=== PATIENT | female | born 1985 | race Caucasian/White ===

== ENCOUNTER 2016-06-09 20:51 | Emergency (ER) | payer SELFPAY ==
[~2016-06-09 20:51] MED LIST: CETI10CA PO; CLOZ200T PO; DIVA125T14 PO; IBUP-1542 PO; IBUP400T22 PO; NPH10OT RIGHT EAR; ORPH100T PO; PEN500 PO; RTPRO5 IH
== END 2016-06-09 22:00 | disposition left against medical advice (07) ==
LOC: E/R 20:51
DX: Z53.21 Procedure and treatment not carried out due to patient leaving prior to being seen by health care provider (principal)

== ENCOUNTER 2016-08-18 15:41 | Emergency (ER) | payer OTHER ==
[~2016-08-18] VITALS: Wt 111.5 kg
[2016-08-18] MEDS ORDERED: FLUC150T17 PO (17:59)
[2016-08-18] MEDS ORDERED: CLOT30CR24 TOP (17:59)
[2016-08-18] MEDS ORDERED: ALBU2.5V3 NEB (18:00)
--- NOTE | 2016-08-18 18:12 | ERD ---
ER Documentation Chief Complaint Date/Time DATE: 08/18/16 TIME: 18:09 Chief Complaint RIGHT UNDERARM RASH AND SOB THAT BEGAN TODAY HPI This is a 30-year-old female presents to the ER with an itchy red rash under her right underarm that started 2 days ago. Patient is disabled and her father is with her helping me with history. Patient has not had any fevers or chills. She has not tried anything for the rash. Rash has not spread anywhere. Per father patient needs refill on nebulized albuterol. Per patient she is not feeling short of breath and she has not had any cough or cold symptoms lately. She denies any chest pain. ROS 12 point review of systems was done, all negative except per HPI. Medications Home Meds Active Scripts Albuterol Sulfate* (Albuterol Sulfate* Neb) 0.083%-3 Ml Neb, 2.5 MG NEB Q4 Y for SHORTNESS OF BREATH, #30 EA Prov:JANA SEBASTIAN 08/18/16 Fluconazole* (Diflucan*) 150 Mg Tablet, 150 MG PO ONCE, #1 TAB Prov:JANA SEBASTIAN 08/18/16 Clotrimazole* (Clotrimazole* AF) 1% - 30 Gm Cream.gm., 1 APPLIC TOP BID for 7 Days, TUB Prov:JANA SEBASTIAN 08/18/16 Cetirizine Hcl* (Zyrtec*) 10 Mg Capsule, 10 MG PO DAILY, #30 TAB.CHEW Prov:CARLOS ROMAN NP 04/12/16 Ibuprofen* (Motrin*) 400 Mg Tab, 400 MG PO Q6H Y for PAIN AND OR ELEVATED TEMP, #30 TAB Prov:CARLOS RMOAN NP 04/12/16 Penicillin V Potassium* (Penicillin V K*) 500 Mg Tab, 500 MG PO QID for 10 Days , TAB Prov:CARLOS ROMAN NP 04/12/16 Ibuprofen* (Motrin*) 400 Mg Tab, 400 MG PO Q6H Y for PAIN AND OR ELEVATED TEMP, #30 TAB Prov:CARLOS ROMAN NP 02/21/16 Neomycin/Polymyxin/Hydrocort* (Cortisporin* Otic) 10 Ml Susp, 4 DROP RIGHT EAR QID for 7 Days, EA Prov:CARLOS ROMAN [facility] 02/21/16 Penicillin V Potassium* (Penicillin V K*) 500 Mg Tab, 500 MG PO BID for 7 Days, TAB Prov:JANA SEBASTIAN 12/08/15 Ibuprofen* (Motrin*) 600 Mg Tab, 600 MG PO Q6, #30 TAB Prov:JANA SEBASTIAN 12/08/15 Orphenadrine Citrate (Norflex) 100 Mg Tablet.sa, 100 MG PO BID for 3 Days, TAB.SA Prov:JANA SEBASTIAN 11/10/15 Ibuprofen* (Motrin*) 600 Mg Tab, 600 MG PO Q6, #30 TAB Prov:JANA SEBASTIAN 11/10/15 Reported Medications Divalproex Sodium* (Depakote*) 125 Mg Tablet.dr, 50 MG PO blaire, TAB 12/17/13 Clozapine (Clozapine) 200 Mg Tablet, 100 MG PO BID, TAB 12/17/13 Albuterol Sulfate* (Proventil* Neb) 0.5 Ml Nebu, 0.5 ML IH Q4 Y for WHEEZING AND SOB 08/11/13 Allergies Allergies: Coded Allergies: No Known Allergies (Verified Allergy, Mild, 03/18/14) PMhx/Soc History of Surgery: Yes (APPENDECTOMY, septal repair) Anesthesia Reaction: No Hx Neurological Disorder: No Hx Cardiac Disorders: No Hx Psychiatric Problems: Yes (SCHIZOPRENIA) Hx Miscellaneous Medical Probl: No Hx Alcohol Use: No Hx Substance Use: No Hx Tobacco Use: No Smoking Status: Never smoker Physical Exam Vitals Vital Signs Date Time Temp Pulse Resp B/P Pulse Ox O2 Delivery O2 Flow Rate FiO2 08/18/16 15:57 98.3 107 18 133/82 96 Physical Exam GENERAL: The patient is well developed and appropriate for usual state of health , in no apparent distress. HEENT: Atraumatic. CHEST: Clear to auscultation bilaterally. There are no rales, wheezes or rhonchi. HEART: Regular rate and rhythm. No murmurs, clicks, rubs or gallops. NEURO: Alert and oriented. SKIN: Fever and rash under right underarm. Procedures/MDM This is a 30-year-old female presents to the ER with a rash under her arm for the last 2 days. This does appear to be a candidal infection. Patient will be sent home with clotrimazole. Father was instructed to try clotrimazole for a week and if this doesn't work she may give patient Diflucan. Patient was also given a refill for her nebulized albuterol. At this time there is no evidence of wheezing, shortness of breath. Patient is not hypoxic or in any respiratory distress. I shared my medical decision making with the father he understands and agrees with plan. Departure Diagnosis: Primary Impression: Monserrat infection Condition: Stable Patient Instructions: Fungal Infection, Skin [General] Additional Instructions: Call your primary care doctor TOMORROW for an appointment during the next 1-2 days.See the doctor sooner or return here if your condition worsens before your appointment time. JANA SEBASTIAN Aug 18, 2016 18:12
== END 2016-08-18 18:27 | disposition home or self-care (01) ==
LOC: FTE 15:41
DX: B37.41 Candidal cystitis and urethritis (principal)
CPT/HCPCS: 99283

== ENCOUNTER 2016-08-20 22:56 | Emergency (ER) | payer OTHER ==
[~2016-08-20] VITALS: Ht 162.6 cm; Wt 109.5 kg
[~2016-08-20 22:56] MED LIST changes: +ALBU2.5V3 NEB; +CLOT30CR24 TOP; +FLUC150T17 PO
[2016-08-20 23:05] VITALS: Ht 162.6 cm; Wt 109.5 kg
--- NOTE | 2016-08-21 | RADRPT ---
PROCEDURE: CT brain without contrast CLINICAL INDICATION: Headaches TECHNIQUE: A CT of the brain was performed utilizing axial sections from the skull base through th e vertex without contrast. Sagittal and coronal images were also reformatted. The exam CTDIvol = 41. 12 mGy and DLP = 630.20 mGy-cm. COMPARISON: None available FINDINGS: No acute intracranial hemorrhage is identified. There is no mass effect or midline shift. No extra -axial fluid collection is seen. The ventricles and sulci are within normal limits for size and con figuration. The density of the brain is within normal limits. Kirkland-white differentiation is preser sissy. The osseous structures are unremarkable. The mastoid air cells and visualized paranasal sinuses are clear. RPTAT:HJJR IMPRESSION: Unremarkable noncontrast CT of the brain. Physician Timbo Date Time Electronically viewed and signed by Physician Timbo on 08/20/2016 23:59 /
[2016-08-21] MEDS ORDERED: NAPR-688 PO (00:07)
--- NOTE | 2016-08-21 00:16 | ERD ---
ER Documentation Chief Complaint Date/Time DATE: 08/21/16 TIME: 00:13 Chief Complaint headache x 3 days HPI This is a 30-year-old female presents to the ER with a headache that is located all over her head over the last 3 days. Patient is mentally retarded and and is brought in by her father who is very concerned regarding headache. Patient denies any photophobia she denies any nausea or vomiting. She denies any head pain. Patient states that she ran into a wall 2 days ago and that this made her headache worse. Does not have any fevers or chills. Headache is described as throbbing in quality, it is made better with ibuprofen however always returns. ROS 12 point review of systems was done, all negative except per HPI. Medications Home Meds Active Scripts Naproxen* (Naproxen*) 500 Mg Tablet, 500 MG PO BID Y for HEADACHE for 7 Days, TAB Prov:JANA SEBASTIAN 08/21/16 Albuterol Sulfate* (Albuterol Sulfate* Neb) 0.083%-3 Ml Neb, 2.5 MG NEB Q4 Y for SHORTNESS OF BREATH, #30 EA Prov:JANA SEBASTIAN 08/18/16 Fluconazole* (Diflucan*) 150 Mg Tablet, 150 MG PO ONCE, #1 TAB Prov:JANA SEBASTIAN 08/18/16 Clotrimazole* (Clotrimazole* AF) 1% - 30 Gm Cream.gm., 1 APPLIC TOP BID for 7 Days, TUB Prov:JANA SEBASTIAN 08/18/16 Cetirizine Hcl* (Zyrtec*) 10 Mg Capsule, 10 MG PO DAILY, #30 TAB.CHEW Prov:CARLOS ROMAN NP 04/12/16 Ibuprofen* (Motrin*) 400 Mg Tab, 400 MG PO Q6H Y for PAIN AND OR ELEVATED TEMP, #30 TAB Prov:CARLOS ROMAN NP 04/12/16 Penicillin V Potassium* (Penicillin V K*) 500 Mg Tab, 500 MG PO QID for 10 Days , TAB Prov:CARLOS ROMAN NP 04/12/16 Ibuprofen* (Motrin*) 400 Mg Tab, 400 MG PO Q6H Y for PAIN AND OR ELEVATED TEMP, #30 TAB Prov:CARLOS ROMAN RANDALL MilySunita BROKER ASSISTANT 02/21/16 Neomycin/Polymyxin/Hydrocort* (Cortisporin* Otic) 10 Ml Susp, 4 DROP RIGHT EAR QID for 7 Days, EA Prov:CARLOS ROMANSunita BROKER ASSISTANT 02/21/16 Penicillin V Potassium* (Penicillin V K*) 500 Mg Tab, 500 MG PO BID for 7 Days, TAB Prov:JANA SEBASTIAN 12/08/15 Ibuprofen* (Motrin*) 600 Mg Tab, 600 MG PO Q6, #30 TAB Prov:JANA SEBASTIAN 12/08/15 Orphenadrine Citrate (Norflex) 100 Mg Tablet.sa, 100 MG PO BID for 3 Days, TAB.SA Prov:JANA SEBASTIAN 11/10/15 Ibuprofen* (Motrin*) 600 Mg Tab, 600 MG PO Q6, #30 TAB Prov:JANA SEBASTIAN 11/10/15 Reported Medications Divalproex Sodium* (Depakote*) 125 Mg Tablet.dr, 50 MG PO blaire, TAB 12/17/13 Clozapine (Clozapine) 200 Mg Tablet, 100 MG PO BID, TAB 12/17/13 Albuterol Sulfate* (Proventil* Neb) 0.5 Ml Nebu, 0.5 ML IH Q4 Y for WHEEZING AND SOB 08/11/13 Allergies Allergies: Coded Allergies: No Known Allergies (Verified Allergy, Mild, 03/18/14) PMhx/Soc History of Surgery: Yes (APPENDECTOMY, septal repair) Anesthesia Reaction: No Hx Neurological Disorder: No Hx Cardiac Disorders: No Hx Psychiatric Problems: Yes (SCHIZOPRENIA) Hx Miscellaneous Medical Probl: No Hx Alcohol Use: No Hx Substance Use: No Hx Tobacco Use: No Smoking Status: Never smoker Physical Exam Vitals Vital Signs Date Time Temp Pulse Resp B/P Pulse Ox O2 Delivery O2 Flow Rate FiO2 08/20/16 23:05 98.3 110 20 154/80 98 Physical Exam GENERAL: The patient is well developed and appropriate for usual state of health , in no apparent distress. HEENT: Atraumatic. Conjunctivae are pink. Pupils equal, round, and reactive to light. Extraocular muscles are grossly intact. Bilateral tympanic membranes are clear with no evidence of erythema, bulging or perforation. No sinus tenderness. NECK: C-spine is soft and supple. There is no cervical lymphadenopathy. CHEST: Clear to auscultation bilaterally. There are no rales, wheezes or rhonchi. HEART: Regular rate and rhythm. No murmurs, clicks, rubs or gallops. EXTREMITIES: Equal pulses bilaterally. There is no peripheral clubbing, cyanosis or edema. No focal swelling or erythema. Full range of motion. Grossly neurovascularly intact. NEURO: Alert and oriented. Cranial nerves II through XII are intact. Motor strength in all 4 extremities with 5/5 strength. Sensation grossly intact. Normal speech and gait. Negative Rhomberg. +2 DTRs. SKIN: There is no apparent rash or petechia. The skin is warm and dry. Procedures/MDM Differential Diagnosis includes but is not limited to; tension headache, migraine headache, cluster headache, sinus headache, nonspecific febrile headache, trigeminal neurologia, subdural hematoma, subarachnoid bleeding, meningitis, encephalitis. Patient is neurologically intact with no focal neurological deficits. This is a 30-year-old female presents to the ER with a headache, this may be a migraine headache. At this time I doubt intracranial pathology. CT imaging was negative. Patient will be sent home with naproxen. She is to follow-up with her primary care doctor within 1-2 days or return to ER sooner if symptoms worsen. My medical decision making was shared with the following he understands and agrees with plan. Departure Diagnosis: Primary Impression: Headache Condition: Stable Patient Instructions: Self-Care for Headaches Additional Instructions: Call your primary care doctor TOMORROW for an appointment during the next 1-2 days.See the doctor sooner or return here if your condition worsens before your appointment time. JANA SEBASTIAN Aug 21, 2016 00:15
== END 2016-08-21 00:29 | disposition home or self-care (01) ==
LOC: FTE 22:56
DX: R51 Headache (principal)
CPT/HCPCS: 70450; Z7502

== ENCOUNTER 2016-10-20 22:41 | Emergency (ER) | payer OTHER ==
[~2016-10-20] VITALS: Ht 167.6 cm; Wt 112.5 kg
[~2016-10-20 22:41] MED LIST changes: +NAPR-688 PO
[2016-10-20 22:49] VITALS: Ht 167.6 cm; Wt 112.5 kg
[2016-10-20] MEDS ORDERED: IPRATROPIUM (NEB) 0.5 MG/2.5 ML AMP NEB STA (23:50)
[2016-10-20] MEDS ORDERED: ALBUTEROL 0.083% (NEB) 2.5 MG/3 ML AMP NEB STA (23:50)
[2016-10-20] MEDS ORDERED: predniSONE 20 MG TAB PO STA (23:50)
--- NOTE | 2016-10-21 00:17 | RADRPT ---
PROCEDURE: Chest. CLINICAL INDICATION: Cough. TECHNIQUE: Single frontal view of the chest was obtained. COMPARISON: None. FINDINGS: The cardiac silhouette is within normal limits. The aortic arch is unremarkable. There is no focal consolidation, vascular congestion or pleural effusion. There is no pneumothorax. IMPRESSION: No evidence for active cardiopulmonary disease. .Erasmo Santacruz MD, Date Time Electronically viewed and signed by .Erasmo Santacruz MD, on 10/21/2016 00:17 .T/
--- NOTE | 2016-10-21 01:01 | ERD ---
ER Documentation Chief Complaint Date/Time DATE: 10/20/16 Chief Complaint Sore throat, Cough, Asthma exacerbation HPI The patient is a 30-year-old female with a history of asthma and schizophrenia who presents to the Emergency Department with complaint of recent rhinorrhea, sore throat and mild cough, exacerbating her underlying asthma. The patient reports that her symptoms began approximately 2 days ago, with onset of an aching, sore pain to her throat, mild dry, nonproductive cough, and clear rhinorrhea. Since onset of these symptoms, she notes that she has been experiencing increased wheezing, particularly at night, necessitating the use of her nebulizer machine. However, she finished her last Albuterol vial last night, and therefore did not have any available for use today. She admits to mild wheezing at this time, but otherwise denies shortness of breath, productive cough, stridor, chest pain, palpitations, lower extremity swelling, fevers, sweats, chills, neck pain, neck stiffness or new rashes. Denies any contacts with similar symptoms. No other complaints at this time. ROS All systems reviewed and are negative except as per history of present illness. Medications Home Meds Active Scripts Prednisone* (Prednisone*) 20 Mg Tab, 40 MG PO DAILY for 4 Days, TAB Prov:CHAS FATIMA PA-C 10/21/16 Albuterol Sulfate* (Albuterol Sulfate* Neb) 0.083%-3 Ml Neb, 2.5 MG NEB Q4H, # 30 VIAL Prov:CHAS FATIMA PA-C 10/21/16 Naproxen* (Naproxen*) 500 Mg Tablet, 500 MG PO BID Y for HEADACHE for 7 Days, TAB Prov:JANA SEBASTIAN 08/21/16 Albuterol Sulfate* (Albuterol Sulfate* Neb) 0.083%-3 Ml Neb, 2.5 MG NEB Q4 Y for SHORTNESS OF BREATH, #30 EA Prov:JANA SEBASTIAN 08/18/16 Fluconazole* (Diflucan*) 150 Mg Tablet, 150 MG PO ONCE, #1 TAB Prov:JANA SEBASTIAN 08/18/16 Clotrimazole* (Clotrimazole* AF) 1% - 30 Gm Cream.gm., 1 APPLIC TOP BID for 7 Days, TUB Prov:JANA SEBASTIAN 08/18/16 Cetirizine Hcl* (Zyrtec*) 10 Mg Capsule, 10 MG PO DAILY, #30 TAB.CHEW Prov:CARLOS ROMAN [employer] 04/12/16 Ibuprofen* (Motrin*) 400 Mg Tab, 400 MG PO Q6H Y for PAIN AND OR ELEVATED TEMP, #30 TAB Prov:CARLOS ROMAN [employer] 04/12/16 Penicillin V Potassium* (Penicillin V K*) 500 Mg Tab, 500 MG PO QID for 10 Days , TAB Prov:CARLOS ROMAN [employer] 04/12/16 Ibuprofen* (Motrin*) 400 Mg Tab, 400 MG PO Q6H Y for PAIN AND OR ELEVATED TEMP, #30 TAB Prov:CARLOS ROMAN [employer] 02/21/16 Neomycin/Polymyxin/Hydrocort* (Cortisporin* Otic) 10 Ml Susp, 4 DROP RIGHT EAR QID for 7 Days, EA Prov:CARLOS ROMAN [employer] 02/21/16 Penicillin V Potassium* (Penicillin V K*) 500 Mg Tab, 500 MG PO BID for 7 Days, TAB Prov:AMBER SEBASTIANRUTH Lynn 12/08/15 Ibuprofen* (Motrin*) 600 Mg Tab, 600 MG PO Q6, #30 TAB Prov:JANA SEBASTIAN 12/08/15 Orphenadrine Citrate (Norflex) 100 Mg Tablet.sa, 100 MG PO BID for 3 Days, TAB.SA Prov:AMBER SEBASTIANRUTH Lynn 11/10/15 Ibuprofen* (Motrin*) 600 Mg Tab, 600 MG PO Q6, #30 TAB Prov:JANA SEBASTIAN Leah 11/10/15 Reported Medications Divalproex Sodium* (Depakote*) 125 Mg Tablet.dr, 50 MG PO blaire, TAB 12/17/13 Clozapine (Clozapine) 200 Mg Tablet, 100 MG PO BID, TAB 12/17/13 Albuterol Sulfate* (Proventil* Neb) 0.5 Ml Nebu, 0.5 ML IH Q4 Y for WHEEZING AND SOB 08/11/13 Allergies Allergies: Coded Allergies: No Known Allergies (Verified Allergy, Mild, 03/18/14) PMhx/Soc History of Surgery: Yes (APPENDECTOMY, septal repair) Anesthesia Reaction: No Hx Neurological Disorder: No Hx Cardiac Disorders: No Hx Psychiatric Problems: Yes (SCHIZOPRENIA) Hx Miscellaneous Medical Probl: No Hx Alcohol Use: No Hx Substance Use: No Hx Tobacco Use: No Smoking Status: Never smoker Physical Exam Vitals Vital Signs Date Time Temp Pulse Resp B/P Pulse Ox O2 Delivery O2 Flow Rate FiO2 10/21/16 01:07 98.3 75 18 130/68 100 Room Air 10/20/16 23:55 89 24 98 21 10/20/16 22:49 98.2 95 20 123/64 97 Physical Exam GENERAL: Well-developed, well-nourished, in no acute distress. HEENT: Head is normocephalic, atraumatic. No scleral pallor or icterus. Pupils equal, round and reactive to light. Extraocular movements intact. Conjunctiva pink. Nares are patent bilaterally. Bilaterally tympanic membranes are clear with no evidence of erythema, effusion or dulling of the light reflex. Moist mucous membranes. No pharyngeal erythema or exudates. Uvula is midline. No trismus. No stridor. No excessive drooling. Phonation is normal. No submandibular swelling. NECK: Supple. No masses, no tenderness, no lymphadenopathy. Trachea midline. No nuchal rigidity. Full range of motion. RESPIRATORY: Lungs are clear to auscultation bilaterally. No rales or rhonchi. Faint expiratory wheezes bilaterally. Equal breath sounds. CARDIOVASCULAR: Regular rate and rhythm. S1 and S2 normal. GASTROINTESTINAL: Abdomen is soft, nontender, and nondistended. Normal bowel sounds. FLANK: No CVA tenderness, no mass or swelling. BACK: No midline tenderness. EXTREMITIES: No clubbing, cyanosis, or edema. Normal skin perfusion. Moving all extremities. Muscle tone is normal. No focal swelling or erythema. Distal pulses are palpable, 2+ bilaterally. Capillary refill is less than 2 seconds. NEUROLOGIC: The patient is alert, awake, and oriented x 3. INTEGUMENT: Skin is clean, dry and intact. No rashes, lesions or petechiae present. PSYCHIATRIC: Appropriate; Cooperative. Results 24 hrs Current Medications Medications (Trade) Dose Ordered Sig/Vicki Route PRN Reason Start Time Stop Time Status Last Admin Dose Admin Albuterol (Proventil 0.083% (Neb)) 5 mg ONCE STAT NEB 10/20/16 23:50 6/29/17 23:52 DC 10/21/16 00:04 Ipratropium [place] (Atrovent 0.02% (Neb)) 0.5 mg ONCE STAT NEB 10/20/16 23:50 10/20/16 23:52 DC 10/21/16 00:04 Prednisone (Prednisone) 60 mg ONCE STAT PO 10/20/16 23:50 10/20/16 23:52 DC 10/21/16 00:12 Procedures/MDM DIAGNOSTIC TESTS AND INTERPRETATION: PROCEDURE: Chest. CLINICAL INDICATION: Cough. TECHNIQUE: Single frontal view of the chest was obtained. COMPARISON: None. FINDINGS:The cardiac silhouette is within normal limits. The aortic arch is unremarkable. There is no focal consolidation, vascular congestion or pleural effusion. There is no pneumothorax. IMPRESSION:No evidence for active cardiopulmonary disease. .Erasmo Santacruz MD, MD Date Time Electronically viewed and signed by .Erasmo Santacruz MD, on 10/21/2016 00:17 MEDICAL DECISION MAKING: This is a 30-year-old female presenting to the emergency department with recent onset of cough, rhinorrhea, sore throat, and wheezing. Patient noted to have faint expiratory wheezing auscultated throughout bilateral lung appiah on physical examination, though with no rales, no rhonchi. She was placed in a room and observed. The patient was given an Albuterol and Atrovent breathing treatment in the ED by respiratory therapy. Prednisone 60 mg PO was also administered. After rest, a period of observation, medication and breathing treatment, the patient had resolution of her wheezing, and felt significantly better. Her lungs are now clear to auscultation bilaterally, with no rales, rhonchi or wheezing. No intercostal retractions, nasal flaring, accessory muscle use or signs of respiratory distress. Chest x- ray with no acute cardiopulmonary abnormalities. Upon review and interpretation of the patient's presentation and overall ER course, I believe the patient's symptoms to be consistent with acute upper respiratory infection, likely viral, and asthma exacerbation. Clinical presentation is not consistent with pneumonia , acute coronary syndrome, pulmonary embolism, acute respiratory distress syndrome, status asthmaticus, sinusitis, otitis media, otitis externa, pharyngitis, airway obstruction, anaphylaxis, pneumothorax, acute/surgical abdomen, sepsis, dehydration or meningitis. At this time, the patient is in stable condition, and no longer experiencing any wheezing or shortness of breath , and therefore can be discharged home with prescriptions for a short course of prednisone and Albuterol. She is advised to follow-up with her primary care provider for reevaluation and further management within 2-3 days, or return to the ER sooner for any new or worsening symptoms. I shared my medical decision making and plan with the patient and family at length and in great detail, and they verbally understand and agree with the plan for further observation and care as an outpatient. At the time of discharge, all questions were answered. Departure Diagnosis: Primary Impression: Asthma with acute exacerbation Asthma severity: mild intermittent Qualified Code: J45.21 - Mild intermittent asthma with acute exacerbation Additional Impression: Upper respiratory infection URI type: unspecified URI Qualified Code: J06.9 - Upper respiratory tract infection, unspecified type Condition: Stable Patient Instructions: Asthma, Acute (Adult), Pharyngitis, Viral, Preventing Common Respiratory Infections Additional Instructions: Call your primary care doctor TOMORROW for an appointment during the next 2-3 days.See the doctor sooner or return here if your condition worsens before your appointment time CHAS FATIMA PA-C Oct 21, 2016 01:01
[2016-10-21] MEDS ORDERED: PRED20TA PO (01:02)
[2016-10-21] MEDS ORDERED: ALBU2.5V3 NEB (01:02)
[2016-10-21 01:07] VITALS: BP 130/68; PULSE 75; RESP 18; TEMP 98.3
== END 2016-10-21 01:07 | disposition home or self-care (01) ==
LOC: FTE 22:41
DX: J45.21 Mild intermittent asthma with (acute) exacerbation (principal); J06.9 Acute upper respiratory infection, unspecified
CPT/HCPCS: 71010; 94664; J7512; Z7610

== ENCOUNTER 2016-10-31 22:14 | Emergency (ER) | payer OTHER ==
[~2016-10-31] VITALS: Ht 167.6 cm; Wt 109.5 kg
[~2016-10-31 22:14] MED LIST changes: +PRED20TA PO
[2016-10-31 22:24] VITALS: Ht 167.6 cm; Wt 109.5 kg
[2016-11-01] MEDS ORDERED: MUPI22OI2 TOP (00:29)
[2016-11-01] MEDS ORDERED: HC30CR25 TOP (00:29)
--- NOTE | 2016-11-01 17:17 | ERD ---
ER Documentation Chief Complaint Date/Time DATE: 11/01/16 TIME: 17:13 Chief Complaint bug bite on right legx 2 days. c/o itching to right leg HPI 31-year-old female presenting to the emergency department complaining of 2 lesions on her right leg for the past 2 days. Patient states that it's very itchy, she denies any pain radiating 0 out of 10. Patient denies any fevers, try any medications. ROS All systems reviewed and are negative except as per history of present illness. Medications Home Meds Active Scripts Mupirocin* (Bactroban*) 2% -22 Gram Oint...g., 1 APPLIC TOP BID for 7 Days, EA Prov:STEFANY JESSICA PA-C 11/01/16 Hydrocortisone* Topical (Hydrocortisone* Topical) 2.5%-28.3 Gm Cream..g., 1 APPLIC TOP BID for 7 Days, #1 TUB Prov:STEFANY JESSICA PA-C 11/01/16 Prednisone* (Prednisone*) 20 Mg Tab, 40 MG PO DAILY for 4 Days, TAB Prov:CHAS FATIMA PA-C 10/21/16 Albuterol Sulfate* (Albuterol Sulfate* Neb) 0.083%-3 Ml Neb, 2.5 MG NEB Q4H, # 30 VIAL Prov:CHAS FATIMA PA-C 10/21/16 Naproxen* (Naproxen*) 500 Mg Tablet, 500 MG PO BID Y for HEADACHE for 7 Days, TAB Prov:JANA SEBASTIAN 08/21/16 Albuterol Sulfate* (Albuterol Sulfate* Neb) 0.083%-3 Ml Neb, 2.5 MG NEB Q4 Y for SHORTNESS OF BREATH, #30 EA Prov:JANA SEBASTIAN 08/18/16 Fluconazole* (Diflucan*) 150 Mg Tablet, 150 MG PO ONCE, #1 TAB Prov:JANA SEBASTIAN 08/18/16 Clotrimazole* (Clotrimazole* AF) 1% - 30 Gm Cream.gm., 1 APPLIC TOP BID for 7 Days, TUB Prov:JANA SEBASTIAN 08/18/16 Cetirizine Hcl* (Zyrtec*) 10 Mg Capsule, 10 MG PO DAILY, #30 TAB.CHEW Prov:CARLOS ROMAN. FIELD IDENTIFICATION SPECIALIST 04/12/16 Ibuprofen* (Motrin*) 400 Mg Tab, 400 MG PO Q6H Y for PAIN AND OR ELEVATED TEMP, #30 TAB Prov:CARLOS ROMAN. FIELD IDENTIFICATION SPECIALIST 04/12/16 Penicillin V Potassium* (Penicillin V K*) 500 Mg Tab, 500 MG PO QID for 10 Days , TAB Prov:CARLOS ROMAN Mily. FIELD IDENTIFICATION SPECIALIST 04/12/16 Ibuprofen* (Motrin*) 400 Mg Tab, 400 MG PO Q6H Y for PAIN AND OR ELEVATED TEMP, #30 TAB Prov:CARLOS ROMAN Mily. FIELD IDENTIFICATION SPECIALIST 02/21/16 Neomycin/Polymyxin/Hydrocort* (Cortisporin* Otic) 10 Ml Susp, 4 DROP RIGHT EAR QID for 7 Days, EA Prov:CARLOS ROMAN Mily. FIELD IDENTIFICATION SPECIALIST 02/21/16 Penicillin V Potassium* (Penicillin V K*) 500 Mg Tab, 500 MG PO BID for 7 Days, TAB Prov:JANA SEBASTIAN C 12/08/15 Ibuprofen* (Motrin*) 600 Mg Tab, 600 MG PO Q6, #30 TAB Prov:JANA SEBASTIAN C 12/08/15 Orphenadrine Citrate (Norflex) 100 Mg Tablet.sa, 100 MG PO BID for 3 Days, TAB.SA Prov:JANA SEBASTIAN C 11/10/15 Ibuprofen* (Motrin*) 600 Mg Tab, 600 MG PO Q6, #30 TAB Prov:JANA SEBASTIAN 11/10/15 Reported Medications Divalproex Sodium* (Depakote*) 125 Mg Tablet.dr, 50 MG PO blaire, TAB 12/17/13 Clozapine (Clozapine) 200 Mg Tablet, 100 MG PO BID, TAB 12/17/13 Albuterol Sulfate* (Proventil* Neb) 0.5 Ml Nebu, 0.5 ML IH Q4 Y for WHEEZING AND SOB 08/11/13 Allergies Allergies: Coded Allergies: No Known Allergies (Verified Allergy, Mild, 03/18/14) PMhx/Soc History of Surgery: Yes (APPENDECTOMY, septal repair) Anesthesia Reaction: No Hx Neurological Disorder: No Hx Cardiac Disorders: No Hx Psychiatric Problems: Yes (SCHIZOPRENIA) Hx Miscellaneous Medical Probl: No Hx Alcohol Use: No Hx Substance Use: No Hx Tobacco Use: No Physical Exam Vitals Vital Signs Date Time Temp Pulse Resp B/P Pulse Ox O2 Delivery O2 Flow Rate FiO2 10/31/16 22:24 97.9 108 18 140/73 99 Physical Exam General: WD/WN, in no apparent distress, non-toxic appearing HENT: NC/AT Eyes: Conjunctiva normal Neck: Supple Pulm: Clear to auscultation, normal labored breathing; no wheezing/rales/ rhonchi heard CV: Good capillary refill GI: Non-distended, no guarding Back: No masses Ext: No clubbing, cyanosis, or edema Neuro: Moves on all fours Skin: 2 erythematous papules on her right leg. Psych: Normal mood Procedures/MDM This is a 31-year-old female presenting to the emergency department with a chief complaint of lesions on her right leg that are itchy, most consistent with insect bites. There is no evidence of cellulitis. No evidence of anaphylaxis, scabies. Patient is stable to be discharged home with prescription for hydrocortisone cream and spray about ointment. I discussed with her to return the ER for any worsening signs or symptoms, patient agrees and understands the plan Departure Diagnosis: Primary Impression: Insect bite Condition: Stable Patient Instructions: Allergic Reaction, Insect (Local) Additional Instructions: FOLLOW UP WITH YOUR PRIMARY CARE PHYSICIAN TOMORROW.Return to this facility if you are not improving as expected. Return to this facility if you are not improving as expected. STEFANY JESSICA PA-C Nov 01, 2016 17:17
== END 2016-11-01 01:06 | disposition home or self-care (01) ==
LOC: FTE 22:14
DX: S80.861A Insect bite (nonvenomous), right lower leg, initial encounter (principal); W57.XXXA Bitten or stung by nonvenomous insect and other nonvenomous arthropods, initial encounter; Y92.9 Unspecified place or not applicable
CPT/HCPCS: 99283

== ENCOUNTER 2016-12-05 01:14 | Emergency (ER) | payer OTHER ==
[~2016-12-05] VITALS: Ht 170.2 cm; Wt 114.0 kg
[~2016-12-05 01:14] MED LIST changes: +HC30CR25 TOP; +MUPI22OI2 TOP
[2016-12-05 01:18] VITALS: Ht 170.2 cm; Wt 114.0 kg
[2016-12-05 02:17] LABS: URINE BLOOD (Dip) POC 2+ (NEGATIVE)
--- NOTE | 2016-12-05 02:28 | ERA ---
ER Documentation Chief Complaint Date/Time DATE: 12/05/16 TIME: 02:24 Chief Complaint burning pain upon urination HPI This is a 31-year-old female presented with a chief complaint of urinary tract infection. Patient describes dysuria, urgency, and suprapubic pain. Patient states that she has had UTIs in the past and this feels just the same. Denies fever, chills, dysuria, hematuria, back pain, abdominal pain, pelvic pain, discharge, foul odor, nausea, vomiting, diarrhea, constipation, headache, or cough. ROS All systems reviewed and are negative except as per history of present illness. Medications Home Meds Active Scripts Phenazopyridine Hcl* (Pyridium*) 100 Mg Tab, 100 MG PO TID Y for URINARY PAIN, # 8 TAB Prov:MARGARITA STYLES PA-C 12/05/16 Nitrofurantoin Monohyd Macrocr* (Macrobid*) 100 Mg Capsr, 100 MG PO HS for 7 Days, CAP Prov:MARGARITA STYLES PA-C 12/05/16 Mupirocin* (Bactroban*) 2% -22 Gram Oint...g., 1 APPLIC TOP BID for 7 Days, EA Prov:STEFANY JESSICA PA-C 11/01/16 Hydrocortisone* Topical (Hydrocortisone* Topical) 2.5%-28.3 Gm Cream..g., 1 APPLIC TOP BID for 7 Days, #1 TUB Prov:STEFANY JESSICA PA-C 11/01/16 Prednisone* (Prednisone*) 20 Mg Tab, 40 MG PO DAILY for 4 Days, TAB Prov:CHAS FATIMA PA-C 10/21/16 Albuterol Sulfate* (Albuterol Sulfate* Neb) 0.083%-3 Ml Neb, 2.5 MG NEB Q4H, # 30 VIAL Prov:CHAS FATIMA PA-C 10/21/16 Naproxen* (Naproxen*) 500 Mg Tablet, 500 MG PO BID Y for HEADACHE for 7 Days, TAB Prov:JANA SEBASTIAN 08/21/16 Albuterol Sulfate* (Albuterol Sulfate* Neb) 0.083%-3 Ml Neb, 2.5 MG NEB Q4 Y for SHORTNESS OF BREATH, #30 EA Prov:JANA SEBASTIAN 08/18/16 Fluconazole* (Diflucan*) 150 Mg Tablet, 150 MG PO ONCE, #1 TAB Prov:JANA SEBASTIAN 08/18/16 Clotrimazole* (Clotrimazole* AF) 1% - 30 Gm Cream.gm., 1 APPLIC TOP BID for 7 Days, TUB Prov:JANA SEBASTIAN 08/18/16 Cetirizine Hcl* (Zyrtec*) 10 Mg Capsule, 10 MG PO DAILY, #30 TAB.CHEW Prov:CARLOS ROMAN CUSTOMS AND IMMIGRATION OFFICER 04/12/16 Ibuprofen* (Motrin*) 400 Mg Tab, 400 MG PO Q6H Y for PAIN AND OR ELEVATED TEMP, #30 TAB Prov:CARLOS ROMAN CUSTOMS AND IMMIGRATION OFFICER 04/12/16 Penicillin V Potassium* (Penicillin V K*) 500 Mg Tab, 500 MG PO QID for 10 Days , TAB Prov:CARLOS ROMAN CUSTOMS AND IMMIGRATION OFFICER 04/12/16 Ibuprofen* (Motrin*) 400 Mg Tab, 400 MG PO Q6H Y for PAIN AND OR ELEVATED TEMP, #30 TAB Prov:CARLOS ROMAN C[employer]S AND IMMIGRATION OFFICER 16 Neomycin/Polymyxin/Hydrocort* (Cortisporin* Otic) 10 Ml Susp, 4 DROP RIGHT EAR QID for 7 Days, EA Prov:CARLOS ROMAN CUSTOMS AND IMMIGRATION OFFICER 02/21/16 Penicillin V Potassium* (Penicillin V K*) 500 Mg Tab, 500 MG PO BID for 7 Days, TAB Prov:JANA SEBASTIAN Leah 12/08/15 Ibuprofen* (Motrin*) 600 Mg Tab, 600 MG PO Q6, #30 TAB Prov:JANA SEBASTIAN Leah 12/08/15 Orphenadrine Citrate (Norflex) 100 Mg Tablet.sa, 100 MG PO BID for 3 Days, TAB.SA Prov:JANA SEBASTIAN Leah 11/10/15 Ibuprofen* (Motrin*) 600 Mg Tab, 600 MG PO Q6, #30 TAB Prov:JANA SEBASTIAN Leah 11/10/15 Reported Medications Divalproex Sodium* (Depakote*) 125 Mg Tablet.dr, 50 MG PO blaire, TAB 12/17/13 Clozapine (Clozapine) 200 Mg Tablet, 100 MG PO BID, TAB 8/26/14 Albuterol Sulfate* (Proventil* Neb) 0.5 Ml Nebu, 0.5 ML IH Q4 Y for WHEEZING AND SOB 08/11/13 Allergies Allergies: Coded Allergies: No Known Allergies (Verified Allergy, Mild, 03/18/14) PMhx/Soc History of Surgery: Yes (APPENDECTOMY, septal repair) Anesthesia Reaction: No Hx Neurological Disorder: No Hx Cardiac Disorders: No Hx Psychiatric Problems: Yes (SCHIZOPRENIA) Hx Miscellaneous Medical Probl: No Hx Alcohol Use: No Hx Substance Use: No Hx Tobacco Use: No Smoking Status: Never smoker Physical Exam Vitals Vital Signs Date Time Temp Pulse Resp B/P Pulse Ox O2 Delivery O2 Flow Rate FiO2 12/05/16 01:18 97.9 93 18 132/77 97 Physical Exam Const: Healthy-appearing. Obese. No acute distress. Abd: Mild suprapubic tenderness. Soft, non tender, non distended. No guarding, masses. Normal bowel sounds. No McBurney's point tenderness. Back: No midline, flank or CVA tenderness Head: Normocephalic, Atraumatic. Eyes: Non-injected; No scleral erythema, discharge or foreign body. Ears: Normal External Ears, EACs clear, TM normal bilaterally without erythema. Nose: Normal external nose; no discharge, septal deviation, or sinus tenderness. Neck: No cervical lymphadenopathy, masses or goiter palpated. Trachea midline. Supple ~ No meningismus. Pulm: No dyspnea, stridor, tripoding or drooling. Good air movement. Clear to auscultation bilaterally. Cardio: Regular rate and rhythm; No murmurs, gallops or rubs auscultated. No JVD grossly observed. Radial and posterior tibial pulses 2+ bilaterally. Capillary refill less than 2 seconds. MS: Normal motor strength, normal tone. Skin: No petechiae or rashes. No ulcer, induration, jaundice. Good turgor. . Ext: No cyanosis, edema or palpable cord. Normal movement of all extremities grossly observed. Neur: Awake, alert and oriented x3. Neurovascularly intact bilaterally. Psych: Normal Mood and Affect. Results 24 hrs Laboratory Tests Test 12/05/16 02:23 12/05/16 02:45 Bedside Urine pH (LAB) 6.5 Bedside Urine Protein (LAB) Negative Bedside Urine Glucose (UA) Negative Bedside Urine Ketones (LAB) Trace Bedside Urine Blood 2+ Bedside Urine Nitrite (LAB) Negative Bedside Urine Leukocyte Esterase (L Negative Urine Color YELLOW Urine Clarity CLEAR Urine pH 6.0 Urine Specific [place] 1.013 Urine Ketones TRACEmg/dL Urine Nitrite NEGATIVEmg/dL Urine Bilirubin NEGATIVEmg/dL Urine Urobilinogen NEGATIVEmg/dL Urine Leukocyte Esterase NEGATIVELeu/ul Urine Microscopic RBC 17/HPF Urine Microscopic WBC 1/HPF Urine Squamous Epithelial Cells FEW/HPF Urine Amorphous Crystals FEW/HPF Urine Bacteria FEW/HPF Urine Hemoglobin 3+mg/dL Urine Glucose NEGATIVEmg/dL Urine Total Protein NEGATIVEmg/dl Procedures/MDM Patient was evaluated and worked up for urinary tract infection as described in the history and physical exam. Workup included urine dip and urine . Urine was negative. Urine dip resulted in the following: Negative leukocytes and nitrates. Positive hematuria, white blood cells and crystals. Most consistent with possible stone. Most likely diagnosis is stone versus cystitis. Patient will be treated with nitrofurantoin 7 days.. At this time I do not suspect pyelonephritis, ovarian torsion, tubo-ovarian abscess, ectopic , mechanical obstruction, hernia, appendicitis, intestinal ischemia, PID, AAA, or diverticulitis. The patient is well appearing, and tolerates PO. I have spoke with the patient regarding their condition and future management. They have verbally responded that they understand their status and treatment plan. The patients vitals are stable, and their current condition is appropriate for discharge. The patient will be given discharge instructions with return precautions. Departure Diagnosis: Primary Impression: Cystitis Additional Impression: Nephrolithiasis Condition: Stable Additional Instructions: Follow up with your PCP within the next 1-3 days for a more thorough evaluation and a possible referral to a specialist. Return the the emergency department immediately if symptoms worsen or change. If you have any questions regarding medications, ask your pharmacist or us before you leave. If any adverse reactions occur while taking your medications, discontinue the treatment and return to the emergency department immediately. Take your medications as directed, and complete the entire course of treatment. MARGARITA STYLES PA-C Dec 05, 2016 02:28
[2016-12-05] MEDS ORDERED: NITR-58 PO (02:44)
[2016-12-05] MEDS ORDERED: PHEN-537 PO (02:44)
[2016-12-05 03:59] LABS: ADD UMIC YES; UR AMORPHOUS CRYSTAL FEW /HPF (NONE SEEN); UR ASCORBIC ACID NEGATIVE (NEGATIVE); UR BACTERIA FEW /HPF (NONE SEEN); UR BILIRUBIN (Dip) NEGATIVE (NEGATIVE); UR BLOOD (Dip) 3+ mg/dL (NEGATIVE); UR CLARITY CLEAR (CLEAR); UR COLOR YELLOW (YELLOW); UR GLUCOSE (Dip) NEGATIVE (NEGATIVE); UR KETONES (Dip) TRACE mg/dL (NEGATIVE); UR LEUKOCYTE ESTERASE (Dip) NEGATIVE Leu/ul (NEGATIVE); UR NITRITE (Dip) NEGATIVE (NEGATIVE); UR RBC 17 /HPF (0-5); UR SPECIFIC GRAVITY (Dip) 1.013 (1.003-1.030); UR SQUAMOUS EPITHELIAL CELL FEW /HPF (FEW); UR TOTAL PROTEIN (Dip) NEGATIVE (NEGATIVE); UR UROBILINOGEN (Dip) NEGATIVE (NEGATIVE)
== END 2016-12-05 02:48 | disposition home or self-care (01) ==
LOC: FTE 01:14
DX: N30.90 Cystitis, unspecified without hematuria (principal); N20.0 Calculus of kidney
CPT/HCPCS: 81001; Z7502; 81003; 99283

== ENCOUNTER 2017-01-06 23:20 | Emergency (ER) | payer OTHER ==
[~2017-01-06] VITALS: Ht 172.7 cm; Wt 114.5 kg
[~2017-01-06 23:20] MED LIST changes: +NITR-58 PO; +PHEN-537 PO
[2017-01-06 23:24] VITALS: Ht 172.7 cm; Wt 114.5 kg
[2017-01-06] MEDS ORDERED: ACET500C5 PO (23:59)
--- NOTE | 2017-01-07 00:06 | ERD ---
ER Documentation Chief Complaint Date/Time DATE: 01/07/17 TIME: 00:00 Chief Complaint PETERSON for a week and worsened today HPI Patient is a 31-year-old female with a past medical history of schizophrenia who presents to the emergency department for concerns of a left-sided headache which has been episodic for the last week. Patient states earlier today the pain was worse however at this current time she has no pain at all. Patient denies taking any medication for headache. Patient denies any fever, chills, neck pain, neck stiffness, nausea, vomiting, blurry vision, photophobia, phonophobia, loss of consciousness, chest pain, shortness of breath. Denies any head injury or fall injuries. Patient states her last menstrual period was 2 weeks ago. She has no homicidal or suicidal ideations at this time. Of note , patient's father is present with her and states that patient is compliant with her schizophrenia medications. ROS All systems reviewed and are negative except as per history of present illness. Medications Home Meds Active Scripts Acetaminophen* (Tylophen*) 500 Mg Capsule, 1 CAP PO Q6H Y for PAIN AND OR ELEVATED TEMP, #20 CAP Prov:FALLON OLO PA-C 01/06/17 Phenazopyridine Hcl* (Pyridium*) 100 Mg Tab, 100 MG PO TID Y for URINARY PAIN, # 8 TAB Prov:MARGARITA STYLES PA-C 12/05/16 Nitrofurantoin Monohyd Macrocr* (Macrobid*) 100 Mg Capsr, 100 MG PO HS for 7 Days, CAP Prov:MARGARITA STYLES PA-C 12/05/16 Mupirocin* (Bactroban*) 2% -22 Gram Oint...g., 1 APPLIC TOP BID for 7 Days, EA Prov:STEFANY JESSICA PA-C 11/01/16 Hydrocortisone* Topical (Hydrocortisone* Topical) 2.5%-28.3 Gm Cream..g., 1 APPLIC TOP BID for 7 Days, #1 TUB Prov:STEFANY JESSICA PA-C 11/01/16 Prednisone* (Prednisone*) 20 Mg Tab, 40 MG PO DAILY for 4 Days, TAB Prov:CHAS FATIMA PA-C 10/21/16 Albuterol Sulfate* (Albuterol Sulfate* Neb) 0.083%-3 Ml Neb, 2.5 MG NEB Q4H, # 30 VIAL Prov:CHAS FATIMA PA-C 10/21/16 Naproxen* (Naproxen*) 500 Mg Tablet, 500 MG PO BID Y for HEADACHE for 7 Days, TAB Prov:JANA SEBASTIAN 08/21/16 Albuterol Sulfate* (Albuterol Sulfate* Neb) 0.083%-3 Ml Neb, 2.5 MG NEB Q4 Y for SHORTNESS OF BREATH, #30 EA Prov:JANA SEBASTIAN 08/18/16 Fluconazole* (Diflucan*) 150 Mg Tablet, 150 MG PO ONCE, #1 TAB Prov:JANA SEBASTIAN 08/18/16 Clotrimazole* (Clotrimazole* AF) 1% - 30 Gm Cream.gm., 1 APPLIC TOP BID for 7 Days, TUB Prov:JANA SEBASTIAN 08/18/16 Cetirizine Hcl* (Zyrtec*) 10 Mg Capsule, 10 MG PO DAILY, #30 TAB.CHEW Prov:CARLOS ROMAN NP 04/12/16 Ibuprofen* (Motrin*) 400 Mg Tab, 400 MG PO Q6H Y for PAIN AND OR ELEVATED TEMP, #30 TAB Prov:CARLOS ROMAN NP 04/12/16 Penicillin V Potassium* (Penicillin V K*) 500 Mg Tab, 500 MG PO QID for 10 Days , TAB Prov:CARLOS ROMAN NP 04/12/16 Ibuprofen* (Motrin*) 400 Mg Tab, 400 MG PO Q6H Y for PAIN AND OR ELEVATED TEMP, #30 TAB Prov:CARLOS ROMAN WET SANDER 02/21/16 Neomycin/Polymyxin/Hydrocort* (Cortisporin* Otic) 10 Ml Susp, 4 DROP RIGHT EAR QID for 7 Days, EA Prov:CARLOS ROMAN WET SANDER 02/21/16 Penicillin V Potassium* (Penicillin V K*) 500 Mg Tab, 500 MG PO BID for 7 Days, TAB Prov:JANA SEBASTIAN 12/08/15 Ibuprofen* (Motrin*) 600 Mg Tab, 600 MG PO Q6, #30 TAB Prov:JANA SEBASTIAN 12/08/15 Orphenadrine Citrate (Norflex) 100 Mg Tablet.sa, 100 MG PO BID for 3 Days, TAB.SA Prov:JANA SEBASTIAN 11/10/15 Ibuprofen* (Motrin*) 600 Mg Tab, 600 MG PO Q6, #30 TAB Prov:JANA SEBASTIAN 11/10/15 Reported Medications Divalproex Sodium* (Depakote*) 125 Mg Tablet.dr, 50 MG PO blaire, TAB 12/17/13 Clozapine (Clozapine) 200 Mg Tablet, 100 MG PO BID, TAB 12/17/13 Albuterol Sulfate* (Proventil* Neb) 0.5 Ml Nebu, 0.5 ML IH Q4 Y for WHEEZING AND SOB 08/11/13 Allergies Allergies: Coded Allergies: No Known Allergies (Verified Allergy, Mild, 03/18/14) PMhx/Soc History of Surgery: Yes (APPENDECTOMY, septal repair) Anesthesia Reaction: No Hx Neurological Disorder: No Hx Cardiac Disorders: No Hx Psychiatric Problems: Yes (SCHIZOPRENIA) Hx Miscellaneous Medical Probl: No Hx Alcohol Use: No Hx Substance Use: No Hx Tobacco Use: No Physical Exam Vitals Vital Signs Date Time Temp Pulse Resp B/P Pulse Ox O2 Delivery O2 Flow Rate FiO2 01/06/17 23:24 98.8 98 16 145/91 100 Physical Exam GENERAL: Well-developed, well-nourished female. Appears in no acute distress. Speaking in full sentences. HEAD: Normocephalic, atraumatic. EYES: Pupils are equally reactive bilaterally. EOMs grossly intact. No conjunctival erythema. ENT: Moist mucous membranes. No uvula deviation. No kissing tonsils. NECK: Supple. No meningismus. Normal range of motion of the neck. No neck stiffness noted. No meningeal signs noted. LUNG: Clear to auscultation bilaterally. No rhonchi, wheezing, rales or coarse breath sounds. HEART: Regular rate and rhythm. No murmurs, rubs or gallops. BACK: No midline tenderness. EXTREMITIES: Equal pulses bilaterally. No peripheral clubbing, cyanosis or edema. No unilateral leg swelling. NEUROLOGIC: Alert and oriented x3, cooperative. Mood and affect appropriate to situation. Cranial nerves II through XII are grossly intact. Normal speech. Motor exam: 5/5 strength in upper and lower extremities. Sensory exam: Sensation intact to light touch on all four extremities. Cerebellar function exam:No dysmetria on [id number] test. Steady gait. No pronator drift. SKIN: Normal color. Warm and dry. No rashes or lesions. Procedures/MDM MEDICAL DECISION MAKING: This is a 31-year-old female presents to the emergency department with intermittent headaches for the last week. Patient states that she did have some left-sided head pain earlier today however her pain is completely resolved. Patient denies any fever, nausea, vomiting, neck pain, neck stiffness , visual changes or LOC. Vital signs were reviewed. Patient was not febrile. Patient was not hypoxic. Full neurological exam was normal. I reviewed the patient's medical history which shows the patient was seen here back in July of this year for similar concerns of a headache. Patient had a negative CT brain at that time. At this time, patient's presentation is most consistent with tension headache. Low suspicion for intracranial hemorrhage, meningitis, encephalitis, intracranial mass, glaucoma, preeclampsia, sinusitis, migraine headache, cluster headache. PRESCRIPTIONS: Tylenol DISCHARGE: At this time, patient is stable for discharge and outpatient management. I have encouraged the patient to hydrate well. I have instructed the patient to follow- up with his/her primary care physician in 1-2 days. If symptoms persist, patient may need to see a specialist for further examinations and testing. I have instructed the patient to promptly return to the ER at any time for any new or worsening symptoms including increased increased pain, fever, nausea, vomiting, numbness, neck stiffness, visual changes, weakness or LOC. The patient and/or family expressed understanding of and agreement with this plan. All questions were answered. Home care instructions were provided. Patient's blood pressure was elevated (>120/80) but appears stable without evidence of hypertensive emergency, hypertensive urgency or end-organ failure. I had discussion with the patient about the risks of hypertension. I have advised the patient to follow up with his/her primary care physician for outpatient monitoring and treatment for hypertension in 2-3 days. I have instructed the patient to return to the ER for any new or worsening symptoms including chest pain, shortness of breath, headache, blurred vision, confusion, nausea, vomiting or LOC. Disclaimer: Inadvertent spelling and grammatical errors are likely due to EHR/ dictation software use and do not reflect on the overall quality of patient care. Also, please note that the electronic time recorded on this note does not necessarily reflect the actual time of the patient encounter. Departure Diagnosis: Primary Impression: Headache Headache type: unspecified Headache chronicity pattern: unspecified pattern Intractability: not intractable Qualified Code: R51 - Nonintractable headache, unspecified chronicity pattern, unspecified headache type Condition: Stable Patient Instructions: Self-Care for Headaches Referrals: [facility] (PCP) Additional Instructions: Continue all schizophrenia medication as prescribed by your doctor. Call your primary care doctor TOMORROW for an appointment during the next 1-2 days.See the doctor sooner or return here if your condition worsens before your appointment time. FALLON LOO PA-C Jan 07, 2017 00:06
== END 2017-01-07 00:11 | disposition home or self-care (01) ==
LOC: FTE 23:20
DX: R51 Headache (principal)
CPT/HCPCS: 99283

== ENCOUNTER 2017-01-25 17:36 | Emergency (ER) | payer OTHER ==
[~2017-01-25] VITALS: Wt 110.0 kg
[~2017-01-25 17:36] MED LIST changes: +ACET500C5 PO; -PEN500 PO; +PENI500T PO
[2017-01-25 20:09] VITALS: BP 142/90; PULSE 96; RESP 16; TEMP 98.1
--- NOTE | 2017-01-25 20:39 | ERA ---
ER Documentation Chief Complaint Date/Time DATE: 01/25/17 TIME: 20:29 Chief Complaint perez, seen here prior to same HPI 31-year-old female with history of schizophrenia presents with the chief complaints of headache that has been chronic and intermittent for the past few months. Denies change in symptoms. Describes the pain as 8 out of 10 and predominately on the right side. Denies fever, worst headache of life, thunderclap headache, meningismus, temporal pain, eye pain, aura, change in vision, or new medications. Patient has been evaluated by other emergency departments per their history in the past week and discharge with only ibuprofen. Patient wishes to have more than ibuprofen. The nursing notes have been reviewed and are consistent with the obtained history. ROS All systems reviewed and are negative except as per history of present illness. Medications Home Meds Active Scripts Acetaminophen* (Tylophen*) 500 Mg Capsule, 1 CAP PO Q6H Y for PAIN AND OR ELEVATED TEMP, #20 CAP Prov:FALLON LOO PA-C 01/06/17 Phenazopyridine Hcl* (Pyridium*) 100 Mg Tab, 100 MG PO TID Y for URINARY PAIN, # 8 TAB Prov:MARGARITA STYLES PA-C 12/05/16 Nitrofurantoin Monohyd Macrocr* (Macrobid*) 100 Mg Capsr, 100 MG PO HS for 7 Days, CAP Prov:MARGARITA STYLES PA-C 12/05/16 Mupirocin* (Bactroban*) 2% -22 Gram Oint...g., 1 APPLIC TOP BID for 7 Days, EA Prov:STEFANY JESSICA PA-C 11/01/16 Hydrocortisone* Topical (Hydrocortisone* Topical) 2.5%-28.3 Gm Cream..g., 1 APPLIC TOP BID for 7 Days, #1 TUB Prov:STEFANY JESSICA PA-C 11/01/16 Prednisone* (Prednisone*) 20 Mg Tab, 40 MG PO DAILY for 4 Days, TAB Prov:CHAS FATIMA PA-C 10/21/16 Albuterol Sulfate* (Albuterol Sulfate* Neb) 0.083%-3 Ml Neb, 2.5 MG NEB Q4H, # 30 VIAL Prov:CHAS FATIMA PA-C 10/21/16 Naproxen* (Naproxen*) 500 Mg Tablet, 500 MG PO BID Y for HEADACHE for 7 Days, TAB Prov:JANA SEBASTIAN 08/21/16 Albuterol Sulfate* (Albuterol Sulfate* Neb) 0.083%-3 Ml Neb, 2.5 MG NEB Q4 Y for SHORTNESS OF BREATH, #30 EA Prov:JANA SEBASTIAN 08/18/16 Fluconazole* (Diflucan*) 150 Mg Tablet, 150 MG PO ONCE, #1 TAB Prov:JANA SEBASTIAN 08/18/16 Clotrimazole* (Clotrimazole* AF) 1% - 30 Gm Cream.gm., 1 APPLIC TOP BID for 7 Days, TUB Prov:JANA SEBASTIAN 08/18/16 Cetirizine Hcl* (Zyrtec*) 10 Mg Capsule, 10 MG PO DAILY, #30 TAB.CHEW Prov:CARLOS ROMAN SQUIRREL MAN 04/12/16 Ibuprofen* (Motrin*) 400 Mg Tab, 400 MG PO Q6H Y for PAIN AND OR ELEVATED TEMP, #30 TAB Prov:CARLOS ROMAN SQUIRREL MAN 04/12/16 Penicillin V Potassium* (Penicillin V K*) 500 Mg Tab, 500 MG PO QID for 10 Days , TAB Prov:CARLOS ROMAN SQUIRREL MAN 04/12/16 Ibuprofen* (Motrin*) 400 Mg Tab, 400 MG PO Q6H Y for PAIN AND OR ELEVATED TEMP, #30 TAB Prov:CARLOS ROMAN SQUIRREL MAN 02/21/16 Neomycin/Polymyxin/Hydrocort* (Cortisporin* Otic) 10 Ml Susp, 4 DROP RIGHT EAR QID for 7 Days, EA Prov:CARLOS ROMNA SQUIRREL MAN 02/21/16 Penicillin V Potassium* (Penicillin V K*) 500 Mg Tab, 500 MG PO BID for 7 Days, TAB Prov:JANA SEBASTIAN 12/08/15 Ibuprofen* (Motrin*) 600 Mg Tab, 600 MG PO Q6, #30 TAB Prov:JANA SEBASTIAN 12/08/15 Orphenadrine Citrate (Norflex) 100 Mg Tablet.sa, 100 MG PO BID for 3 Days, TAB.SA Prov:JANA SEBASTIAN 11/10/15 Ibuprofen* (Motrin*) 600 Mg Tab, 600 MG PO Q6, #30 TAB Prov:JANA SEBASTIAN 11/10/15 Reported Medications Divalproex Sodium* (Depakote*) 125 Mg Tablet.dr, 50 MG PO blaire, TAB 12/17/13 Clozapine (Clozapine) 200 Mg Tablet, 100 MG PO BID, TAB 12/17/13 Albuterol Sulfate* (Proventil* Neb) 0.5 Ml Nebu, 0.5 ML IH Q4 Y for WHEEZING AND SOB 08/11/13 Allergies Allergies: Coded Allergies: No Known Allergies (Verified Allergy, Mild, 03/18/14) PMhx/Soc History of Surgery: Yes (APPENDECTOMY, septal repair) Anesthesia Reaction: No Hx Neurological Disorder: No Hx Cardiac Disorders: No Hx Psychiatric Problems: Yes (SCHIZOPRENIA) Hx Miscellaneous Medical Probl: No Hx Alcohol Use: No Hx Substance Use: No Hx Tobacco Use: No Smoking Status: Never smoker Physical Exam Vitals Vital Signs Date Time Temp Pulse Resp B/P Pulse Ox O2 Delivery O2 Flow Rate FiO2 01/25/17 20:09 98.1 96 16 142/90 96 Room Air 01/25/17 18:02 98.1 99 20 144/75 96 Physical Exam Const: Morbidly obese 31-year-old female no acute distress Head: Normocephalic, Atraumatic. Eyes: Non-injected; No discharge or foreign body. Ophthalmoscope exam unremarkable. EOMI and IRINA bilaterally. No nystagmus. Neur: Awake, alert and oriented x3. Neurovascularly intact bilaterally. Psych: Oriented to person place and time Ears: Normal External Ears, EACs clear, TM normal bilaterally without erythema. Nose: Normal external nose; no discharge, septal deviation, or sinus tenderness. Oral: No oral edema visualized. Mucous membranes moist and pink. Neck: No cervical lymphadenopathy, masses or goiter palpated. Trachea midline. Full range of motion. Supple ~ No meningismus. Pulm: Good air movement in upper and lower respiratory tracts. No dyspnea, stridor, tripoding or drooling. Clear to auscultation bilaterally. Cardio: Regular rate and rhythm; No murmurs, gallops or rubs auscultated. No JVD grossly observed. Radial and posterior tibial pulses 2+ bilaterally. No cyanosis. Capillary refill less than 2 seconds. Abd: Soft, non tender, non distended. No guarding, masses. Normal bowel sounds. No McBurney's point tenderness. MS: Normal motor strength, normal tone with gross examination. Back: No midline, flank or CVA tenderness. Ext: No edema or palpable cord. Normal movement of all extremities grossly observed. Procedures/MDM Patient was worked up and evaluated for headache as described in the history and physical examination. No medications were given in the emergency department. There are no red flags to support brain CT evaluation. The current most likely diagnosis is tension-type headache versus migraine. Patient will be discharged with recommendations to continue ibuprofen as prescribed by the last provider. Patient had a full prescription bottle of ibuprofen with her. Patient has been discharged with referral list of neurologist to follow up with. At this time, I have little suspicion for subarachnoid hemorrhage or other intracranial bleeds, meningitis, temporal arteritis, glaucoma, hypertensive urgency/emergency, cerebral ischemia, arterial dissection, brain abscess/tumor, pain secondary to trauma, septicemia, or other intracranial bleeds. I have spoke with the patient regarding their condition and future management. They have verbally responded that they understand their status and treatment plan. The patients vitals are stable, and their current condition is appropriate for discharge. The patient will be given discharge instructions with return precautions. Departure Diagnosis: Primary Impression: Headache Qualified Code: R51 - Nonintractable headache, unspecified chronicity pattern , unspecified headache type Condition: Stable Patient Instructions: Self-Care for Headaches Referrals: TRINI RIOS MD,JOSIE ENRIQUEZ,ALEX SHARPE MD, MD, ANDREW M MD HIJAZIN,OSIEL PEMBERTON,BENNIE KELLEY,REYNA APONTE MD,DIMITRY PEGUERO,TIA BLAND,AINSLEY Chin MD [facility] YOU HAVE RECEIVED A MEDICAL SCREENING EXAM AND THE RESULTS INDICATE THAT YOU DO NOT HAVE A CONDITION THAT REQUIRES URGENT TREATMENT IN THE EMERGENCY DEPARTMENT. FURTHER EVALUATION AND TREATMENT OF YOUR CONDITION CAN WAIT UNTIL YOU ARE SEEN IN YOUR DOCTORS OFFICE WITHIN THE NEXT 1-2 DAYS. IT IS YOUR RESPONSIBILITY TO MAKE AN APPOINTMENT FOR FOLOW-UP CARE. IF YOU HAVE A PRIMARY DOCTOR --you should call your primary doctor and schedule an appointment IF YOU DO NOT HAVE A PRIMARY DOCTOR YOU CAN CALL OUR PHYSICIAN REFERRAL HOTLINE AT IF YOU CAN NOT AFFORD TO SEE A PHYSICIAN YOU CAN CHOSE FROM THE FOLLOWING [facility] [address] [facility] [address] [facility] [address] [facility] [address] [facility] [address] [facility]. [facility] [address] Additional Instructions: Follow up with Neurology in the next week. A list has been given to you. Return the the emergency department immediately if symptoms worsen or change. Continue ibuprofen as prescribed. If you have any questions regarding medications, ask your pharmacist or us before you leave. If any adverse reactions occur while taking your medications, discontinue the treatment and return to the emergency department immediately. MARGARITA STYLES PA-C Jan 25, 2017 20:39
== END 2017-01-25 20:10 | disposition home or self-care (01) ==
LOC: FTE 17:36
DX: J06.9 Acute upper respiratory infection, unspecified (principal); H66.91 Otitis media, unspecified, right ear
CPT/HCPCS: 99283

== ENCOUNTER 2017-04-13 17:13 | Emergency (ER) | END 2017-04-13 19:48 | disposition home or self-care (01) ==

== ENCOUNTER 2017-04-25 18:40 | Emergency (ER) | END 2017-04-25 21:58 | disposition home or self-care (01) ==

== ENCOUNTER 2017-06-05 14:37 | Emergency (ER) | END 2017-06-05 17:10 | disposition left against medical advice (07) ==

== ENCOUNTER 2017-07-24 21:36 | Emergency (ER) | END 2017-07-25 00:10 | disposition left against medical advice (07) ==

== ENCOUNTER 2017-09-12 22:42 | Emergency (ER) | END 2017-09-13 00:15 | disposition left against medical advice (07) ==

== ENCOUNTER 2017-09-20 18:05 | Emergency (ER) | END 2017-09-20 19:37 | disposition home or self-care (01) ==

== ENCOUNTER 2018-09-26 22:15 | Emergency (ER) | payer OTHER ==
[~2018-09-26] VITALS: Ht 170.2 cm; Wt 105.0 kg
[~2018-09-26 22:15] MED LIST changes: +DIVA125T PO; -DIVA125T14 PO; +FLOV110 INHALATION; +FLUC150T PO; -FLUC150T17 PO; +IBUP-1561 PO; -IBUP400T22 PO; +MED4DP PO
[2018-09-26 22:25] VITALS: BP 151/67; PULSE 90; RESP 20; Ht 170.2 cm; Wt 105.0 kg
[2018-09-27] MEDS ORDERED: CLOZAPINE 25 MG TAB PO STA (00:44)
--- NOTE | 2018-09-27 00:49 | ERD ---
ER Documentation Chief Complaint Chief Complaint clozapine 100 mg bid refill needed per pt HPI 32-year-old female with history of schizophrenia, presents to the emergency department, brought in by her father, requesting a refill for clozapine 100 mg twice daily, according to the father, her primary doctors on the occasion. Otherwise, the patient and the father denied acute hallucinations, no suicidal or homicidal ideation. ROS All systems reviewed and are negative except as per history of present illness. Medications Home Meds Active Scripts Clozapine (Clozapine) 50 Mg Tablet, 100 MG PO BID, #20 TAB Prov:ENRIQUE RUIZ MD 09/27/18 Methylprednisolone* (Medrol* DOSE PACK) 4 Mg/Dose-Pack Tab.ds.pk, 4 MG PO . DIRECTED for 6 Days, PACKET Prov:JANA SEBASTIAN 09/20/17 Fluticasone Propionate* (Flovent* HFA 110) 12 Gm Inha, 1 PUFF INHALATION BID, #1 INHALER Prov:JANA SEBASTIAN 09/20/17 Ibuprofen* (Motrin*) 600 Mg Tab, 600 MG PO Q6, #30 TAB Prov:OBI,[place] 04/25/17 Nitrofurantoin Monohyd Macrocr* (Macrobid*) 100 Mg Capsr, 100 MG PO BID for 7 Da ys, #14 CAP Prov:OBI,[place] 18 Ibuprofen* (Motrin*) 600 Mg Tab, 600 MG PO Q6, #15 TAB Prov:FALLON LOO PA-C 04/13/17 Nitrofurantoin Monohyd Macrocr* (Macrobid*) 100 Mg Capsr, 100 MG PO BID for 5 Da ys, CAP Prov:FALLON LOO PA-C 04/13/17 Acetaminophen* (Tylophen*) 500 Mg Capsule, 1 CAP PO Q6H PRN for PAIN AND OR ELEVATED TEMP, #20 CAP Prov:FALLON LOO PA-C 01/06/17 Phenazopyridine Hcl* (Pyridium*) 100 Mg Tab, 100 MG PO TID PRN for URINARY PAIN, #8 TAB Prov:MARGARITA STYLES PA-C 12/05/16 Nitrofurantoin Monohyd Macrocr* (Macrobid*) 100 Mg Capsr, 100 MG PO HS for 7 Days, CAP Prov:MARGARITA STYLES PA-C 12/05/16 Mupirocin* (Bactroban*) 2% -22 Gram Oint...g., 1 APPLIC TOP BID for 7 Days, EA Prov:STEFANY JESSICA PA-C 11/01/16 Hydrocortisone* Topical (Hydrocortisone* Topical) 2.5%-28.3 Gm Cream..g., 1 APPLIC TOP BID for 7 Days, #1 TUB Prov:STEFANY JESSICA PA-C 11/01/16 Prednisone* (Prednisone*) 20 Mg Tab, 40 MG PO DAILY for 4 Days, TAB Prov:CHAS FATIMA PA-C 10/21/16 Albuterol Sulfate* (Albuterol Sulfate* Neb) 0.083%-3 Ml Neb, 2.5 MG NEB Q4H, #30 VIAL Prov:CHAS FATIMA PA-C 10/21/16 Naproxen* (Naproxen*) 500 Mg Tablet, 500 MG PO BID PRN for HEADACHE for 7 Days, TAB Prov:JANA SEBASTIAN 08/21/16 Albuterol Sulfate* (Albuterol Sulfate* Neb) 0.083%-3 Ml Neb, 2.5 MG NEB Q4 PRN for SHORTNESS OF BREATH, #30 EA Prov:JANA SEBASTIAN 08/18/16 Fluconazole* (Diflucan*) 150 Mg Tablet, 150 MG PO ONCE, #1 TAB Prov:JANA SEBASTIAN 08/18/16 Clotrimazole* (Clotrimazole* AF) 1% - 30 Gm Cream.gm., 1 APPLIC TOP BID for 7 Days, TUB Prov:JANA SEBASTIAN 08/18/16 Cetirizine Hcl* (Zyrtec*) 10 Mg Capsule, 10 MG PO DAILY, #30 TAB.CHEW Prov:CARLOS ROMAN NP 04/12/16 Ibuprofen* (Motrin*) 400 Mg Tab, 400 MG PO Q6H PRN for PAIN AND OR ELEVATED TEMP, #30 TAB Prov:CARLOS ROMAN NP 04/12/16 Penicillin V Potassium* (Penicillin V K*) 500 Mg Tab, 500 MG PO QID for 10 Days, TAB Prov:CARLOS ROMAN MANAGER RFID 04/12/16 Ibuprofen* (Motrin*) 400 Mg Tab, 400 MG PO Q6H PRN for PAIN AND OR ELEVATED TEMP, #30 TAB Prov:CARLOS ROMAN MANAGER RFID 02/21/16 Neomycin/Polymyxin/Hydrocort* (Cortisporin* Otic) 10 Ml Susp, 4 DROP RIGHT EAR QID for 7 Days, EA Prov:CARLOS ROMAN MANAGER RFID 02/21/16 Penicillin V Potassium* (Penicillin V K*) 500 Mg Tab, 500 MG PO BID for 7 Days, TAB Prov:JANA SEBASTIAN 12/08/15 Ibuprofen* (Motrin*) 600 Mg Tab, 600 MG PO Q6, #30 TAB Prov:JANA SEBASTIAN 12/08/15 Orphenadrine Citrate (Norflex) 100 Mg Tablet.sa, 100 MG PO BID for 3 Days, TAB.SA Prov:JANA SEBASTIAN 11/10/15 Ibuprofen* (Motrin*) 600 Mg Tab, 600 MG PO Q6, #30 TAB Prov:JANA SEBASTIAN 11/10/15 Reported Medications Divalproex Sodium* (Depakote*) 125 Mg Tablet.dr, 50 MG PO blaire, TAB 12/17/13 Clozapine (Clozapine) 200 Mg Tablet, 100 MG PO BID, TAB 12/17/13 Albuterol Sulfate* (Proventil* Neb) 0.5 Ml Nebu, 0.5 ML IH Q4 PRN for WHEEZING AND SOB 08/11/13 Allergies Allergies: Coded Allergies: No Known Allergies (Verified Allergy, Mild, 03/18/14) PMhx/Soc History of Surgery: No Anesthesia Reaction: No Hx Neurological Disorder: No Hx Respiratory Disorders: No Hx Cardiac Disorders: No Hx Psychiatric Problems: Yes (Schizophrenia) Hx Miscellaneous Medical Probl: No Hx Alcohol Use: No Hx Substance Use: No Hx Tobacco Use: No FmHx Family History: No diabetes, No coronary disease Physical Exam Vitals Vital Signs Date Temp Pulse Resp B/P (MAP) Pulse Ox O2 O2 Flow FiO2 Time Delivery Rate 09/26/18 98.5 90 20 151/67 98 22:25 (95) Physical Exam Const: No acute distress Head: Atraumatic Eyes: Normal Conjunctiva ENT: Normal External Ears, Nose and Mouth. Neck: Full range of motion. No meningismus. Resp: Clear to auscultation bilaterally Cardio: Regular rate and rhythm, no murmurs Abd: Soft, non tender, non distended. Normal bowel sounds Skin: No petechiae or rashes Back: No midline or flank tenderness Ext: No cyanosis, or edema Neur: Awake and alert Psych: Normal Mood and Affect Results 24 hrs Current Medications Medications Dose Sig/Vicki Start Time Status Last (Trade) Ordered Route PRN Stop Time Admin Dose Reason Admin Clozapine 100 mg ONCE STAT 09/27/18 DC (Clozaril) PO 00:44 09/27/18 00:46 Clozapine 100 mg ONCE ONCE 09/27/18 DC (Clozaril) PO 01:00 09/27/18 01:00 Procedures/MDM Low suspicion for acute psychosis, no suicidal or homicidal ideation, patient is stable. During the ED course the patient remained stable, no new complaints. The patient is stable to be treated outpatient and will be discharged home with a Rx for clozapine, some side effects of prescribed medications (headache, rash, nausea, vomiting, diarrhea, drowsiness, habituation, bleeding, hypertension, interactions with other medications) were reviewed. The patient was instructed to follow up with the primary care provider in the next 48h. If symptoms persist, worsen or new symptoms develop, then patient should return to the ED immediately. Instructions explained and given directly by me to the patient with acknowledgment and demonstrated understanding. Disclaimer: Inadvertent spelling and grammatical errors are likely due to EHR/dictation software use and do not reflect on the overall quality of patient care. Also, please note that the electronic time recorded on this note does not necessarily reflect the actual time of the patient encounter. Departure Diagnosis: Primary Impression: Schizoaffective disorder Additional Impression: Encounter for medication refill Condition: Stable Patient Instructions: Taking Medicine Safely Additional Instructions: Thank you very much for allowing us to participate in your care. Your health and safety is our top priority at [facility]. The evaluation in the emergency department has been done to rule out an acute emergency. Chronic, [id number] conditions may have not been evaluated; therefore, you need to follow up with a primary care provider in the next 48h. If symptoms persist, worsen or new symptoms develop, then patient should return to the ED immediately. Call your primary care doctor TOMORROW for an appointment during the next 2-4 days and bring all the information provided. Have prescriptions filled and follow precisely the directions on the label. If the symptoms get worse and your provider is unavailable, return to the Emergency Department immediately. ENRIQUE RUIZ MD Sep 27, 2018 00:49
[2018-09-27] MEDS ORDERED: CLOZ50TA PO (00:51)
[2018-09-27] MEDS ORDERED: CLOZAPINE 100 MG TABLET PO ONE (01:00)
== END 2018-09-27 00:56 | disposition home or self-care (01) ==
LOC: FTE 22:15
DX: F25.9 Schizoaffective disorder, unspecified (principal)
CPT/HCPCS: 99281

== ENCOUNTER 2018-10-08 21:33 | Emergency (ER) | payer SELFPAY ==
[~2018-10-08] VITALS: Ht 172.7 cm; Wt 104.6 kg
[~2018-10-08 21:33] MED LIST changes: +CLOZ50TA PO
[2018-10-08 21:36] VITALS: BP 152/93; PULSE 105; RESP 22; Ht 172.7 cm; Wt 104.6 kg
== END 2018-10-09 01:39 | disposition left against medical advice (07) ==
LOC: FTE 21:33
DX: Z53.21 Procedure and treatment not carried out due to patient leaving prior to being seen by health care provider (principal)

== ENCOUNTER 2018-10-19 19:24 | Emergency (ER) | payer OTHER ==
[~2018-10-19] VITALS: Ht 172.7 cm; Wt 103.9 kg
[2018-10-19 19:28] VITALS: Ht 172.7 cm; Wt 103.9 kg
[2018-10-19] MEDS ORDERED: CEPH-443 PO (21:24)
--- NOTE | 2018-10-19 21:30 | ERD ---
ER Documentation Chief Complaint Chief Complaint Bump behind R ear x 1 week HPI 32-year-old female presented to ED for an abscess behind her right ear. Patient states is been there for 1 week and that it hurts. Patient denies any allergies to medication. Patient denies any past medical history. Patient denies fever chills nausea vomiting ROS All systems reviewed and are negative except as per history of present illness. Medications Home Meds Active Scripts Cephalexin* (Keflex*) 500 Mg Capsule, 500 MG PO BID for 5 Days, CAP Prov:HENRI OVERTON PA-C 10/19/18 Clozapine (Clozapine) 50 Mg Tablet, 100 MG PO BID, #20 TAB Prov:ENRIQUE RUIZ MD 09/27/18 Methylprednisolone* (Medrol* DOSE PACK) 4 Mg/Dose-Pack Tab.ds.pk, 4 MG PO . DIRECTED for 6 Days, PACKET Prov:JANA SEBASTIAN 09/20/17 Fluticasone Propionate* (Flovent* HFA 110) 12 Gm Inha, 1 PUFF INHALATION BID, #1 INHALER Prov:JANA SEBASTIAN 09/20/17 Ibuprofen* (Motrin*) 600 Mg Tab, 600 MG PO Q6, #30 TAB Prov:OBI,[place]O 04/25/17 Nitrofurantoin Monohyd Macrocr* (Macrobid*) 100 Mg Capsr, 100 MG PO BID for 7 Days, #14 CAP Prov:OBI,[place]O 04/25/17 Ibuprofen* (Motrin*) 600 Mg Tab, 600 MG PO Q6, #15 TAB Prov:FALLON LOO PA-C 04/13/17 Nitrofurantoin Monohyd Macrocr* (Macrobid*) 100 Mg Capsr, 100 MG PO BID for 5 Days, CAP Prov:FALLON LOO PA-C 04/13/17 Acetaminophen* (Tylophen*) 500 Mg Capsule, 1 CAP PO Q6H PRN for PAIN AND OR ELEVATED TEMP, #20 CAP Prov:FALLON LOO PA-C 01/06/17 Phenazopyridine Hcl* (Pyridium*) 100 Mg Tab, 100 MG PO TID PRN for URINARY PAIN, #8 TAB Prov:MARGARITA STYLES PA-C 12/05/16 Nitrofurantoin Monohyd Macrocr* (Macrobid*) 100 Mg Capsr, 100 MG PO HS for 7 Days, CAP Prov:MARGARITA STYLES PA-C 12/05/16 Mupirocin* (Bactroban*) 2% -22 Gram Oint...g., 1 APPLIC TOP BID for 7 Days, EA Prov:STEFANY JESSICA PA-C 11/01/16 Hydrocortisone* Topical (Hydrocortisone* Topical) 2.5%-28.3 Gm Cream..g., 1 APPLIC TOP BID for 7 Days, #1 TUB Prov:STEFANY JESSICA PA-C 11/01/16 Prednisone* (Prednisone*) 20 Mg Tab, 40 MG PO DAILY for 4 Days, TAB Prov:CHAS FATIMA PA-C 10/21/16 Albuterol Sulfate* (Albuterol Sulfate* Neb) 0.083%-3 Ml Neb, 2.5 MG NEB Q4H, #30 VIAL Prov:CHAS FATIMA PA-C 10/21/16 Naproxen* (Naproxen*) 500 Mg Tablet, 500 MG PO BID PRN for HEADACHE for 7 Days, TAB Prov:JANA SEBASTIAN 08/21/16 Albuterol Sulfate* (Albuterol Sulfate* Neb) 0.083%-3 Ml Neb, 2.5 MG NEB Q4 PRN for SHORTNESS OF BREATH, #30 EA Prov:JANA SEBASTIAN 08/18/16 Fluconazole* (Diflucan*) 150 Mg Tablet, 150 MG PO ONCE, #1 TAB Prov:JANA SEBASTIAN 08/18/16 Clotrimazole* (Clotrimazole* AF) 1% - 30 Gm Cream.gm., 1 APPLIC TOP BID for 7 Days, TUB Prov:JANA SEBASTIAN 08/18/16 Cetirizine Hcl* (Zyrtec*) 10 Mg Capsule, 10 MG PO DAILY, #30 TAB.CHEW Prov:CARLOS ROMAN NP 04/12/16 Ibuprofen* (Motrin*) 400 Mg Tab, 400 MG PO Q6H PRN for PAIN AND OR ELEVATED TEMP, #30 TAB Prov:CARLOS ROMAN NP 04/12/16 Penicillin V Potassium* (Penicillin V K*) 500 Mg Tab, 500 MG PO QID for 10 Days, TAB Prov:CARLOS ROMAN MAE MilySunita DIRECTOR OF SOLUTIONS ARCHITECTURE 04/12/16 Ibuprofen* (Motrin*) 400 Mg Tab, 400 MG PO Q6H PRN for PAIN AND OR ELEVATED TEMP, #30 TAB Prov:CARLOS ROMANSunita DIRECTOR OF SOLUTIONS ARCHITECTURE 02/21/16 Neomycin/Polymyxin/Hydrocort* (Cortisporin* Otic) 10 Ml Susp, 4 DROP RIGHT EAR QID for 7 Days, EA Prov:CARLOS ROMAN Mily. DIRECTOR OF SOLUTIONS ARCHITECTURE 02/21/16 Penicillin V Potassium* (Penicillin V K*) 500 Mg Tab, 500 MG PO BID for 7 Days, TAB Prov:JANA SEBASTIAN eLah 12/08/15 Ibuprofen* (Motrin*) 600 Mg Tab, 600 MG PO Q6, #30 TAB Prov:JAZ,JANA C 12/08/15 Orphenadrine Citrate (Norflex) 100 Mg Tablet.sa, 100 MG PO BID for 3 Days, TAB.SA Prov:JANA SEBASTIAN Leah 11/10/15 Ibuprofen* (Motrin*) 600 Mg Tab, 600 MG PO Q6, #30 TAB Prov:JANA SEBASTIAN Leah 11/10/15 Reported Medications Divalproex Sodium* (Depakote*) 125 Mg Tablet.dr, 50 MG PO blaire, TAB 12/17/13 Clozapine (Clozapine) 200 Mg Tablet, 100 MG PO BID, TAB 12/17/13 Albuterol Sulfate* (Proventil* Neb) 0.5 Ml Nebu, 0.5 ML IH Q4 PRN for WHEEZING AND SOB 08/11/13 Allergies Allergies: Coded Allergies: No Known Allergies (Verified Allergy, Mild, 03/18/14) PMhx/Soc Medical and Surgical Hx: pt denies Surgical Hx History of Surgery: No Anesthesia Reaction: No Hx Neurological Disorder: No Hx Respiratory Disorders: No Hx Cardiac Disorders: No Hx Psychiatric Problems: Yes (Schizophrenia) Hx Miscellaneous Medical Probl: No Hx Alcohol Use: No Hx Substance Use: No Hx Tobacco Use: No Smoking Status: Never smoker FmHx Family History: No diabetes, No coronary disease, No other Physical Exam Vitals Vital Signs Date Temp Pulse Resp B/P (MAP) Pulse Ox O2 O2 Flow FiO2 Time Delivery Rate 10/19/18 98.5 105 16 158/74 96 19:28 (102) Physical Exam Const: No acute distress Head: 1 cm nonfluctuant erythematous lesion behind her right ear Eyes: Normal Conjunctiva ENT: Normal External Ears, Nose and Mouth. Neck: Full range of motion. No meningismus. Resp: Clear to auscultation bilaterally Cardio: Regular rate and rhythm, no murmurs Abd: Soft, non tender, non distended. Normal bowel sounds Skin: No petechiae or rashes Back: No midline or flank tenderness Ext: No cyanosis, or edema Neur: Awake and alert Psych: Normal Mood and Affect Procedures/MDM Medical decision makin-year-old female presents to ED for lesion behind her right ear. Exam was remarkable for a small erythematous nonfluctuant lesion in her right ear. No signs of drainage, pus, streaking from the lesion. Patient is afebrile. I of fered to drain the abscess but the patient refused. Patient wants to try outpatient antibiotic treatment first. At this time I have low suspicion for osteomyelitis, mastoiditis, sepsis, necrotizing fasciitis. Patient was given prescription for Keflex was advised to return if symptoms worsen otherwise follow-up with primary care provider 1 to 2 days regarding this visit. Patient had no further questions upon discharge and is in agreement to the treatment plan Prescription for home: Keflex Discharge: At this time, patient is stable for discharge and outpatient management. I have instructed the patient to follow-up with his\her primary care physician in 1 to 2 days. I have discussed with the patient the possibility of needing to see a specialist for further work-up and imaging studies if symptoms persist. I have instructed the patient to promptly return to the ER for any new or worsening symptoms including increased pain, fever, nausea, vomiting, weakness or LOC. The patient and\or family expressed understanding of and agreement with this plan. All questions were answered. Home care instructions were provided. Disclaimer: Inadvertent spelling and grammatical errors are likely due to EHR\dictation software use and do not reflect on the overall quality of patient care. Also, please note that the electronic time recorded on the note does not necessarily reflect the actual time of the patient encounter. Departure Diagnosis: Primary Impression: Abscess Condition: Stable Referrals: [facility] YOU HAVE RECEIVED A MEDICAL SCREENING EXAM AND THE RESULTS INDICATE THAT YOU DO NOT HAVE A CONDITION THAT REQUIRES URGENT TREATMENT IN THE EMERGENCY DEPARTMENT. FURTHER EVALUATION AND TREATMENT OF YOUR CONDITION CAN WAIT UNTIL YOU ARE SEEN IN YOUR DOCTORS OFFICE WITHIN THE NEXT 1-2 DAYS. IT IS YOUR RESPONSIBILITY TO MAKE AN APPOINTMENT FOR FOLOW-UP CARE. IF YOU HAVE A PRIMARY DOCTOR --you should call your primary doctor and schedule an appointment IF YOU DO NOT HAVE A PRIMARY DOCTOR YOU CAN CALL OUR PHYSICIAN REFERRAL HOTLINE AT IF YOU CAN NOT AFFORD TO SEE A PHYSICIAN YOU CAN CHOSE FROM THE FOLLOWING [facility] [address] [facility] [address] [facility] [facility] [address] [facility] [facility] [address] [facility]. [facility] [address] [facility] [facility] [address] [facility]. [facility] YOU HAVE RECEIVED A MEDICAL SCREENING EXAM AND THE RESULTS INDICATE THAT YOU DO NOT HAVE A CONDITION THAT REQUIRES URGENT TREATMENT IN THE EMERGENCY DEPARTMENT. FURTHER EVALUATION AND TREATMENT OF YOUR CONDITION CAN WAIT UNTIL YOU ARE SEEN IN YOUR DOCTORS OFFICE WITHIN THE NEXT 1-2 DAYS. IT IS YOUR RESPONSIBILITY TO MAKE AN APPOINTMENT FOR FOLOW-UP CARE. IF YOU HAVE A PRIMARY DOCTOR --you should call your primary doctor and schedule and appointment IF YOU DO NOT HAVE A PRIMARY DOCTOR YOU CAN CALL OUR PHYSICIAN REFERRAL HOTLINE AT . IF YOU CAN NOT AFFORD TO SEE A PHYSICIAN YOU CAN CHOSE FROM THE FOLLOWING [facility] INSTITUTIONS: [facility] [address] [place] [address] [facility] [address] [place] [address] [facility] + [facility] [address] [place] [address] Additional Instructions: Call your primary care doctor TOMORROW for an appointment during the next 1-2 days.See the doctor sooner or return here if your condition worsens before your appointment time. HENRI OVERTON PA-C Oct 19, 2018 21:30
== END 2018-10-19 22:23 | disposition home or self-care (01) ==
LOC: FTE 19:24
DX: H60.01 Abscess of right external ear (principal)
CPT/HCPCS: 99283

== ENCOUNTER 2018-11-15 20:16 | Emergency (ER) | payer OTHER ==
[~2018-11-15] VITALS: Ht 174 cm; Wt 104.8 kg
[~2018-11-15 20:16] MED LIST changes: +CEPH-443 PO
[2018-11-15 20:18] VITALS: Ht 174 cm; Wt 104.8 kg
--- NOTE | 2018-11-15 22:06 | ERD ---
ER Documentation Chief Complaint Chief Complaint RIGHT LEG PAIN [id number]; NO KNOWN INJ HPI 33-year-old female with no reported past medical surgical history presents with complaint of right foot pain. Been having pain to the lateral surface of right foot. Worse with ambulation. She denies any recent fall or trauma but reports she had a trip and fall with negative x-ray about a year ago. She denies any drug use intravenous drug use, drainage from area, lesions. She otherwise without symptoms. Able to take multiple steps with minimal discomfort in examination room. ROS All systems reviewed and are negative except as per history of present illness. Medications Home Meds Active Scripts Ibuprofen* (Motrin*) 600 Mg Tab, 600 MG PO Q6, #30 TAB Prov:JOCELYNE QUIROGA PA-C 11/15/18 Cephalexin* (Keflex*) 500 Mg Capsule, 500 MG PO BID for 5 Days, CAP Prov:HENRI OVERTON PA-C 10/19/18 Clozapine (Clozapine) 50 Mg Tablet, 100 MG PO BID, #20 TAB Prov:ENRIQUE RUIZ MD 09/27/18 Methylprednisolone* (Medrol* DOSE PACK) 4 Mg/Dose-Pack Tab.ds.pk, 4 MG PO . DIRECTED for 6 Days, PACKET Prov:JANA SEBASTIAN 09/20/17 Fluticasone Propionate* (Flovent* HFA 110) 12 Gm Inha, 1 PUFF INHALATION BID, #1 INHALER Prov:JANA SEBASTIAN 09/20/17 Ibuprofen* (Motrin*) 600 Mg Tab, 600 MG PO Q6, #30 TAB Prov:OBI,[place] 04/25/17 Nitrofurantoin Monohyd Macrocr* (Macrobid*) 100 Mg Capsr, 100 MG PO BID for 7 Days, #14 CAP Prov:OBI,[place]O 04/25/17 Ibuprofen* (Motrin*) 600 Mg Tab, 600 MG PO Q6, #15 TAB Prov:FALLON LOO PA-C 04/13/17 Nitrofurantoin Monohyd Macrocr* (Macrobid*) 100 Mg Capsr, 100 MG PO BID for 5 Days, CAP Prov:FALLON LOO PA-C 04/13/17 Acetaminophen* (Tylophen*) 500 Mg Capsule, 1 CAP PO Q6H PRN for PAIN AND OR ELEVATED TEMP, #20 CAP Prov:FALLON LOO PA-C 01/06/17 Phenazopyridine Hcl* (Pyridium*) 100 Mg Tab, 100 MG PO TID PRN for URINARY PAIN, #8 TAB Prov:MARGARITA STYLES PA-C 12/05/16 Nitrofurantoin Monohyd Macrocr* (Macrobid*) 100 Mg Capsr, 100 MG PO HS for 7 Days, CAP Prov:MARGARITA STYLES PA-C 12/05/16 Mupirocin* (Bactroban*) 2% -22 Gram Oint...g., 1 APPLIC TOP BID for 7 Days, EA Prov:STEFANY JESSICA PA-C 11/01/16 Hydrocortisone* Topical (Hydrocortisone* Topical) 2.5%-28.3 Gm Cream..g., 1 APPLIC TOP BID for 7 Days, #1 TUB Prov:STEFANY JESSICA PA-C 11/01/16 Prednisone* (Prednisone*) 20 Mg Tab, 40 MG PO DAILY for 4 Days, TAB Prov:CHAS FATIMA PA-C 10/21/16 Albuterol Sulfate* (Albuterol Sulfate* Neb) 0.083%-3 Ml Neb, 2.5 MG NEB Q4H, #30 VIAL Prov:CHAS FATIMA PA-C 10/21/16 Naproxen* (Naproxen*) 500 Mg Tablet, 500 MG PO BID PRN for HEADACHE for 7 Days, TAB Prov:JANA SEBASTIAN 08/21/16 Albuterol Sulfate* (Albuterol Sulfate* Neb) 0.083%-3 Ml Neb, 2.5 MG NEB Q4 PRN for SHORTNESS OF BREATH, #30 EA Prov:JANA SEBASTIAN 08/18/16 Fluconazole* (Diflucan*) 150 Mg Tablet, 150 MG PO ONCE, #1 TAB Prov:JANA SEBASTIAN 08/18/16 Clotrimazole* (Clotrimazole* AF) 1% - 30 Gm Cream.gm., 1 APPLIC TOP BID for 7 Days, TUB Prov:JANA SEBASTIAN 08/18/16 Cetirizine Hcl* (Zyrtec*) 10 Mg Capsule, 10 MG PO DAILY, #30 TAB.CHEW Prov:CARLOS ROMAN. GENERAL STUDIES PROGRAM CHAIR 04/12/16 Ibuprofen* (Motrin*) 400 Mg Tab, 400 MG PO Q6H PRN for PAIN AND OR ELEVATED TEMP, #30 TAB Prov:CARLOS ROMAN. GENERAL STUDIES PROGRAM CHAIR 04/12/16 Penicillin V Potassium* (Penicillin V K*) 500 Mg Tab, 500 MG PO QID for 10 Days, TAB Prov:ABELCARLOS RANDALL Mily. GENERAL STUDIES PROGRAM CHAIR 04/12/16 Ibuprofen* (Motrin*) 400 Mg Tab, 400 MG PO Q6H PRN for PAIN AND OR ELEVATED TEMP, #30 TAB Prov:ABELCARLOS BRISENOFloyd Minor. GENERAL STUDIES PROGRAM CHAIR 02/21/16 Neomycin/Polymyxin/Hydrocort* (Cortisporin* Otic) 10 Ml Susp, 4 DROP RIGHT EAR QID for 7 Days, EA Prov:DONTEJOSEFACARLOSDominick Minor. GENERAL STUDIES PROGRAM CHAIR 02/21/16 Penicillin V Potassium* (Penicillin V K*) 500 Mg Tab, 500 MG PO BID for 7 Days, TAB Prov:JANA SEBASTIAN C 12/08/15 Ibuprofen* (Motrin*) 600 Mg Tab, 600 MG PO Q6, #30 TAB Prov:JAZJANA BALES C 12/08/15 Orphenadrine Citrate (Norflex) 100 Mg Tablet.sa, 100 MG PO BID for 3 Days, TAB.SA Prov:AMBER SEBASTIANNA C 11/10/15 Ibuprofen* (Motrin*) 600 Mg Tab, 600 MG PO Q6, #30 TAB Prov:JANA SEBASTIAN 11/10/15 Reported Medications Divalproex Sodium* (Depakote*) 125 Mg Tablet.dr, 50 MG PO blaire, TAB 12/17/13 Clozapine (Clozapine) 200 Mg Tablet, 100 MG PO BID, TAB 12/17/13 Albuterol Sulfate* (Proventil* Neb) 0.5 Ml Nebu, 0.5 ML IH Q4 PRN for WHEEZING AND SOB 08/11/13 Allergies Allergies: Coded Allergies: No Known Allergies (Verified Allergy, Mild, 03/18/14) PMhx/Soc Medical and Surgical Hx: pt denies Surgical Hx History of Surgery: No Anesthesia Reaction: No Hx Neurological Disorder: No Hx Respiratory Disorders: No Hx Cardiac Disorders: No Hx Psychiatric Problems: Yes (Schizophrenia) Hx Miscellaneous Medical Probl: No Hx Alcohol Use: No Hx Substance Use: No Hx Tobacco Use: No Smoking Status: Never smoker FmHx Family History: No diabetes, No coronary disease, No other Physical Exam Vitals Vital Signs Date Temp Pulse Resp B/P (MAP) Pulse Ox O2 O2 Flow FiO2 Time Delivery Rate 11/15/18 98.2 106 20 122/71 99 20:18 (88) Physical Exam I have reviewed the triage vital signs. Const: Well nourished, well developed, appears stated age Eyes: PERRL, no conjunctival injection HENT: NCAT, Neck supple without meningismus CV: RRR, Warm, well-perfused extremities RESP: CTAB, Unlabored respiratory effort GI: soft, non-tender, non-distended, no masses MSK: No gross deformities appreciated, right foot lateral aspect with what appears to be a callus, no induration redness or swelling, patient able to take multiple steps in examination room with minimal discomfort, 5 out of 5 strength throughout, SI LT throughout Skin: Warm, dry. No rashes Neuro: grossly non focal Psych: Appropriate mood and affect. Procedures/MDM 33-year-old female presents complaint of right foot pain. She denies any recent trauma or injury. She has a reassuring examination. I have low suspicion for any acute process warranting further emergent care or work-up. Patient has likely area of callus. Was given instructions on foot care. Strict return precautions explained in detail. DISPOSITION PLAN: We discussed follow up with the patient's primary care doctor within 24 to 48 hours. Patient counseled regarding my diagnostic impression and care plan. Prior to discharge all questions answered. Pt agrees with treatment plan and understands strict return precautions. Precautionary instructions provided including instructions to return to the ER if not improving or for any worsening or changing symptoms or concerns. Disclaimer: Inadvertent spelling and grammatical errors are likely due to EHR/dictation software use and do not reflect on the overall quality of patient care. Also, please note that the electronic time recorded on this note does not necessarily reflect the actual time of the patient encounter. Departure Diagnosis: Primary Impression: Foot pain, right Condition: Stable Referrals: [facility] YOU HAVE RECEIVED A MEDICAL SCREENING EXAM AND THE RESULTS INDICATE THAT YOU DO NOT HAVE A CONDITION THAT REQUIRES URGENT TREATMENT IN THE EMERGENCY DEPARTMENT. FURTHER EVALUATION AND TREATMENT OF YOUR CONDITION CAN WAIT UNTIL YOU ARE SEEN IN YOUR DOCTORS OFFICE WITHIN THE NEXT 1-2 DAYS. IT IS YOUR RESPONSIBILITY TO MAKE AN APPOINTMENT FOR FOLOW-UP CARE. IF YOU HAVE A PRIMARY DOCTOR --you should call your primary doctor and schedule an appointment IF YOU DO NOT HAVE A PRIMARY DOCTOR YOU CAN CALL OUR PHYSICIAN REFERRAL HOTLINE AT IF YOU CAN NOT AFFORD TO SEE A PHYSICIAN YOU CAN CHOSE FROM THE FOLLOWING [facility] [employer] [address] [facility] [address] [facility] [employer] [facility] [facility] [address] [facility] [address] [facility] [facility]. [facility] [address] [facility]. [facility]. [address] Additional Instructions: Call your primary care doctor TOMORROW for an appointment during the next 2-3 days.See the doctor sooner or return here if your condition worsens before your appointment time. JOCELYNE QUIROGA PA-C Nov 15, 2018 22:06
[2018-11-15 22:12] VITALS: BP 132/80; PULSE 85; RESP 16
== END 2018-11-15 22:13 | disposition home or self-care (01) ==
LOC: FTE 20:16
DX: M79.671 Pain in right foot (principal)
CPT/HCPCS: 99282

== ENCOUNTER 2019-02-13 19:13 | Emergency (ER) | payer OTHER ==
[~2019-02-13] VITALS: Ht 172.7 cm; Wt 105.2 kg
[~2019-02-13 19:13] MED LIST changes: +ACET-141 PO; +ALBU8.5H8 INH; +PHEN-538 PO
[2019-02-13 19:24] VITALS: BP 141/67; PULSE 87; RESP 20; Ht 172.7 cm; Wt 105.2 kg
== END 2019-02-13 19:53 | disposition home or self-care (01) ==
LOC: E/R 19:13
DX: M79.671 Pain in right foot (principal)
CPT/HCPCS: 99282